=== PATIENT | female | born 1985 | race African-American/Black ===

== ENCOUNTER 2016-06-22 11:29 | Emergency (ER) | payer OTHER ==
[~2016-06-22] VITALS: Wt 89.4 kg
[~2016-06-22 11:29] MED LIST: AMOXICILLIN500 MG PO; ANAPROX DS550 MG PO; ATORVASTATIN CA10 M1 PO; AUGMENTIN 875875 MG PO; BACTRIM DS 8001 TA1 PO; CELEXA10 MG PO; CIPRO250 MG PO; CIPROFLOXACIN500 MG PO; CYCLOBENZAPRINE5 M3 PO; FIORICET 325 MG1 TAB PO; HYDROCODONE BIT1 T11 PO; IBUPROFEN600 MG PO; IMITREX ST6 MG/0.51 IM; LOMOTIL 0.025 M1 TA1 PO; MACROBID100 M1 PO; MEDROL DOSEPAK4 MG PO; MOTRIN800 MG PO; Motrin,Rufen800 MG PO; NEURONTIN300 MG PO; NKHM; PENICILLIN VK500 MG PO; PERCOCET 325 MG1 TA2 PO; PERCOCET 325 MG1 TA7 PO; PNV PRENATAL P1 EACH PO; PRENATAL1 TA2 PO; PRENATAL1 TAB PO; REGLAN10 MG PO; TORADOL10 MG PO; VENTOLIN H0.09 MG/AC INH; VICOPROFEN 2001 EACH PO; VITAMIN D50000 I3 PO; Vicodin 5/500 505 MG PO; ZITHROMAX250 MG PO; ZOFRAN ODT4 MG SL; ZOFRAN4 MG PO
[2016-06-22] MEDS ORDERED: ADDERALL XR20 MG PO (11:32)
[2016-06-22] MEDS ORDERED: NORCO 5-325 TA1 EACH PO (13:49)
== END 2016-06-22 13:58 | disposition home or self-care (01) ==
LOC: ED 11:29
DX: S92.901A Unspecified fracture of right foot, initial encounter for closed fracture (principal); F17.200 Nicotine dependence, unspecified, uncomplicated; W50.0XXA Accidental hit or strike by another person, initial encounter; Y93.89 Activity, other specified; Y92.89 Other specified places as the place of occurrence of the external cause; Y99.0 Civilian activity done for income or pay

== ENCOUNTER → 2016-07-19 | Outpatient (CLI) | payer OTHER ==
[~2016-07-19] MED LIST changes: +ADDERALL XR20 MG PO; +NORCO 5-325 TA1 EACH PO
== END | disposition home or self-care (01) ==
LOC: ORTHO 01:05
DX: S92.334D Nondisplaced fracture of third metatarsal bone, right foot, subsequent encounter for fracture with routine healing (principal); X58.XXXD Exposure to other specified factors, subsequent encounter

== ENCOUNTER 2016-07-29 07:51 | Emergency (ER) | payer OTHER ==
[~2016-07-29] VITALS: Ht 160 cm; Wt 86.2 kg
[2016-07-29] MEDS ORDERED: AMOXICILLIN500 M2 PO (10:21)
== END 2016-07-29 10:38 | disposition home or self-care (01) ==
LOC: ED 07:51
DX: J02.9 Acute pharyngitis, unspecified (principal); F17.200 Nicotine dependence, unspecified, uncomplicated; G43.909 Migraine, unspecified, not intractable, without status migrainosus; Z79.899 Other long term (current) drug therapy

== ENCOUNTER 2016-08-26 09:01 | Emergency (ER) | payer OTHER ==
[~2016-08-26] VITALS: Wt 84.8 kg
[~2016-08-26 09:01] MED LIST changes: +AMOXICILLIN500 M2 PO
[2016-08-26] MEDS ORDERED: CIPRO500 MG PO (09:21)
[2016-08-26] MEDS ORDERED: FLOXIN10 ML OT (09:22)
[2016-08-26] MEDS ORDERED: Motrin,Rufen800 MG PO (09:30)
[2016-08-27] MEDS ORDERED: PERCOCET 325 MG1 TA2 PO (03:59)
== END 2016-08-26 10:20 | disposition home or self-care (01) ==
LOC: ED 09:01
DX: H60.502 Unspecified acute noninfective otitis externa, left ear (principal); F17.200 Nicotine dependence, unspecified, uncomplicated; G43.909 Migraine, unspecified, not intractable, without status migrainosus; Z98.890 Other specified postprocedural states; Z90.710 Acquired absence of both cervix and uterus; Z79.899 Other long term (current) drug therapy

== ENCOUNTER 2016-08-27 03:45 | Emergency (ER) | payer OTHER ==
[~2016-08-27] VITALS: Ht 167.6 cm; Wt 104.3 kg
[~2016-08-27 03:45] MED LIST changes: +CIPRO500 MG PO; +FLOXIN10 ML OT
[2016-08-27] MEDS ORDERED: PERCOCET 325 MG1 TA2 PO (03:59)
== END 2016-08-27 04:17 | disposition home or self-care (01) ==
LOC: ED 03:45
DX: H60.92 Unspecified otitis externa, left ear (principal); Z79.899 Other long term (current) drug therapy

== ENCOUNTER 2016-09-25 02:53 | Emergency (ER) | payer OTHER ==
[~2016-09-25] VITALS: Ht 160 cm; Wt 5.2 kg
[2016-09-25 03:21] LABS: BILIRUBIN NEGATIVE (NEGATIVE); BLOOD NEGATIVE (NEGATIVE); CLARITY SL CLOUDY (CLEAR); COLOR YELLOW (YELLOW); GLUCOSE NEGATIVE (NEGATIVE); KETONE NEGATIVE (NEGATIVE); LEUKO ESTERASE NEGATIVE (NEGATIVE); NITRITE NEGATIVE (NEGATIVE); PROTEIN NEGATIVE (NEGATIVE); SPECIFIC GRAVITY 1.015 (1.005-1.030); UROBILINOGEN 0.2 E.U./dl (0.2-1.0)
[2016-09-25 03:27] LABS: BACTERIA 2+; URINE REFLEX COMMENT YES (NO)
[2016-09-25 04:36] LABS: BASO # 0.1 10*3/uL (0.0-0.1); BASO % 0.5 % (0.0-1.0); EOS # 0.2 10*3/uL (0.0-0.4); EOS % 1.4 % (1.0-4.0); HEMATOCRIT 41.8 % (37.0-47.0); LYMPH # 2.3 10*3/uL (1.3-4.4); LYMPH % 19.4 % (27.0-41.0); MEAN CELL VOLUME 85.8 fl (81.0-99.0); MEAN CORPUSCULAR HGB 28.7 pg (27.0-31.0); MEAN CORPUSCULAR HGB CONC 33.5 g/dl (33.0-37.0); MEAN PLATELET VOLUME 10.1 fl (9.6-12.3); MONO # 0.7 10*3/uL (0.1-1.0); MONO % 5.7 % (3.0-9.0); NEUT # 8.4 10*3/uL (2.3-7.9); NEUT % 72.7 % (47.0-73.0); PLATELET COUNT AUTOMATED 199 10*3/uL (130-400); RED BLOOD COUNT 4.87 10*6/uL (4.10-5.10); RED CELL DISTRI WIDTH 12.9 % (0-14.5); WHITE BLOOD COUNT 11.6 10*3/uL (4.8-10.8)
[2016-09-25 04:51] LABS: BUN 7 mg/dl (7-24); C-REACTIVE PROTEIN 0.36 MG/DL (0-0.3); CARBON DIOXIDE 29 mmol/L (21-32); CHLORIDE 107 mmol/L (98-107); EST GLOM FILT AFRICAN AMERICAN > 60 ml/min; GLUCOSE 128 mg/dL (65-99); POTASSIUM 4.3 mmol/L (3.5-5.1); SODIUM 142 mmol/L (136-145)
[2016-09-25] MEDS ORDERED: Orphenadrine C100 MG PO (05:33)
[2016-09-25] MEDS ORDERED: Motrin,Rufen800 MG PO (05:33)
[2016-09-25] MEDS ORDERED: ZOFRAN ODT4 MG SL (05:33)
[2016-09-25] MEDS ORDERED: ULTRAM50 MG PO (05:33)
[2016-09-25] MEDS ORDERED: MACROBID100 M1 PO (05:36)
== END 2016-09-25 06:03 | disposition home or self-care (01) ==
LOC: ED 02:53
PROVIDERS: Emergency Medicine Emergency Medical Services
DX: S39.012A Strain of muscle, fascia and tendon of lower back, initial encounter (principal); A08.4 Viral intestinal infection, unspecified; N39.0 Urinary tract infection, site not specified; R31.9 Hematuria, unspecified; G43.909 Migraine, unspecified, not intractable, without status migrainosus; F17.200 Nicotine dependence, unspecified, uncomplicated; Z79.899 Other long term (current) drug therapy; X58.XXXA Exposure to other specified factors, initial encounter; Y93.9 Activity, unspecified; Y92.9 Unspecified place or not applicable; Y99.9 Unspecified external cause status

== ENCOUNTER 2016-11-11 02:56 | Emergency (ER) | payer OTHER ==
[~2016-11-11] VITALS: Ht 160 cm; Wt 86.2 kg
[~2016-11-11 02:56] MED LIST changes: +Orphenadrine C100 MG PO; +ULTRAM50 MG PO
[2016-11-11] MEDS ORDERED: CYCLOBENZAPRINE10 MG PO (03:13)
[2016-11-11] MEDS ORDERED: NAPROSYN500 MG PO (03:13)
== END 2016-11-11 04:05 | disposition home or self-care (01) ==
LOC: ED 02:56
DX: G89.29 Other chronic pain (principal); M54.9 Dorsalgia, unspecified; Z79.899 Other long term (current) drug therapy

== ENCOUNTER 2016-12-06 01:08 | Emergency (ER) | payer OTHER ==
[~2016-12-06] VITALS: Ht 160 cm; Wt 86.2 kg
[~2016-12-06 01:08] MED LIST changes: +CYCLOBENZAPRINE10 MG PO; +NAPROSYN500 MG PO
[2016-12-06] MEDS ORDERED: ULTRAM50 MG PO (02:12)
[2016-12-06] MEDS ORDERED: Motrin,Rufen800 MG PO (02:12)
[2016-12-06] MEDS ORDERED: Orphenadrine C100 MG PO (02:12)
== END 2016-12-06 02:38 | disposition home or self-care (01) ==
LOC: ED 01:08
DX: S29.012A Strain of muscle and tendon of back wall of thorax, initial encounter (principal); Q85.00 Neurofibromatosis, unspecified; F17.200 Nicotine dependence, unspecified, uncomplicated; G43.909 Migraine, unspecified, not intractable, without status migrainosus; G89.29 Other chronic pain; Z98.890 Other specified postprocedural states; Z90.710 Acquired absence of both cervix and uterus; Z79.899 Other long term (current) drug therapy; X58.XXXA Exposure to other specified factors, initial encounter; Y93.89 Activity, other specified; Y92.89 Other specified places as the place of occurrence of the external cause; Y99.9 Unspecified external cause status

== ENCOUNTER 2017-01-09 17:39 | Emergency (ER) | payer OTHER ==
[~2017-01-09] VITALS: Ht 160 cm; Wt 88.5 kg
[2017-01-09] MEDS ORDERED: NAPROSYN500 MG PO (18:50)
[2017-01-09] MEDS ORDERED: CYCLOBENZAPRINE10 MG PO (18:50)
== END 2017-01-09 18:58 | disposition home or self-care (01) ==
LOC: ED 17:39
DX: S29.012A Strain of muscle and tendon of back wall of thorax, initial encounter (principal); Q85.00 Neurofibromatosis, unspecified; M54.89 Other dorsalgia; Z79.899 Other long term (current) drug therapy; F17.200 Nicotine dependence, unspecified, uncomplicated; F10.10 Alcohol abuse, uncomplicated; X58.XXXA Exposure to other specified factors, initial encounter; Y93.89 Activity, other specified; Y92.89 Other specified places as the place of occurrence of the external cause; Y99.8 Other external cause status

== ENCOUNTER → 2017-01-10 | Outpatient (CLI) | payer OTHER | END | disposition home or self-care (01) | LOC: MAMMO 09:23 | DX: N64.52 Nipple discharge (principal); Z80.3 Family history of malignant neoplasm of breast ==

== ENCOUNTER 2017-02-07 07:37 | Emergency (ER) | payer OTHER ==
[~2017-02-07] VITALS: Ht 160 cm; Wt 88.5 kg
== END 2017-02-07 09:23 | disposition home or self-care (01) ==
LOC: ED 07:37
DX: S63.697A Other sprain of left little finger, initial encounter (principal); G89.29 Other chronic pain; G43.909 Migraine, unspecified, not intractable, without status migrainosus; F17.200 Nicotine dependence, unspecified, uncomplicated; F10.10 Alcohol abuse, uncomplicated; Z79.899 Other long term (current) drug therapy; X58.XXXA Exposure to other specified factors, initial encounter; Y93.89 Activity, other specified; Y92.89 Other specified places as the place of occurrence of the external cause; Y99.0 Civilian activity done for income or pay

== ENCOUNTER 2017-03-30 21:36 | Emergency (ER) | payer OTHER ==
[~2017-03-30] VITALS: Ht 160 cm; Wt 88.5 kg
[2017-03-30] MEDS ORDERED: CYCLOBENZAPRINE10 MG PO (22:35)
[2017-03-30] MEDS ORDERED: NAPROSYN500 MG PO (22:35)
== END 2017-03-30 22:45 | disposition home or self-care (01) ==
LOC: ED 21:36
DX: M62.830 Muscle spasm of back (principal); F17.200 Nicotine dependence, unspecified, uncomplicated

== ENCOUNTER 2017-04-07 12:59 | Emergency (ER) | payer OTHER ==
[~2017-04-07] VITALS: Wt 90.3 kg
[2017-04-07] MEDS ORDERED: NAPROSYN500 MG PO (13:59)
== END 2017-04-07 15:14 | disposition home or self-care (01) ==
LOC: ED 12:59
DX: S90.31XA Contusion of right foot, initial encounter (principal); R03.0 Elevated blood-pressure reading, without diagnosis of hypertension; F17.200 Nicotine dependence, unspecified, uncomplicated; G43.909 Migraine, unspecified, not intractable, without status migrainosus; G89.29 Other chronic pain; Z98.890 Other specified postprocedural states; Z79.899 Other long term (current) drug therapy; W20.8XXA Other cause of strike by thrown, projected or falling object, initial encounter; Y93.89 Activity, other specified; Y92.89 Other specified places as the place of occurrence of the external cause; Y99.9 Unspecified external cause status

== ENCOUNTER → 2017-04-13 | Outpatient (CLI) | payer OTHER ==
[~2017-04-13] MED LIST changes: +PRE NATAL VITAMIN PO; +VITAMIN D5000 UNI1 PO
[2017-04-13 09:41] LABS: BASO % 0.5 % (0.0-1.0); EOS # 0.2 10*3/uL (0.0-0.4); EOS % 2.6 % (1.0-4.0); HEMOGLOBIN 14.7 g/dl (12.0-16.0); LYMPH # 2.7 10*3/uL (1.3-4.4); LYMPH % 36.8 % (27.0-41.0); MEAN CELL VOLUME 84.1 fl (81.0-99.0); MEAN CORPUSCULAR HGB 28.8 pg (27.0-31.0); MEAN CORPUSCULAR HGB CONC 34.2 g/dl (33.0-37.0); MEAN PLATELET VOLUME 10.3 fl (9.6-12.3); MONO # 0.5 10*3/uL (0.1-1.0); MONO % 6.8 % (3.0-9.0); NEUT # 3.9 10*3/uL (2.3-7.9); NEUT % 53.2 % (47.0-73.0); PLATELET COUNT AUTOMATED 263 10*3/uL (130-400); RED BLOOD COUNT 5.11 10*6/uL (4.10-5.10); RED CELL DISTRI WIDTH 12.7 % (0-14.5); WHITE BLOOD COUNT 7.3 10*3/uL (4.8-10.8)
[2017-04-13 09:43] LABS: BILIRUBIN NEGATIVE (NEGATIVE); BLOOD NEGATIVE (NEGATIVE); CLARITY CLEAR (CLEAR); COLOR YELLOW (YELLOW); GLUCOSE NEGATIVE (NEGATIVE); KETONE NEGATIVE (NEGATIVE); LEUKO ESTERASE NEGATIVE (NEGATIVE); NITRITE NEGATIVE (NEGATIVE); PH 5.5 (5.0-9.0); SPECIFIC GRAVITY 1.025 (1.005-1.030); UROBILINOGEN 0.2 E.U./dl (0.2-1.0)
[2017-04-13 10:09] LABS: BUN 8 mg/dl (7-24); CHLORIDE 105 mmol/L (98-107); CREATININE 0.64 mg/dL (0.55-1.02); SODIUM 141 mmol/L (136-145)
[2017-04-13 10:33] LABS: ACT PARTIAL THROMBO TIME 22.8 SECONDS (20.8-31.5); BACTERIA TRACE
== END | disposition home or self-care (01) ==
LOC: LAB 08:15
PROVIDERS: Surgery
DX: N63.0 Unspecified lump in unspecified breast (principal)

== ENCOUNTER → 2017-04-19 | Day surgery (SDC) | payer OTHER ==
[~2017-04-19] VITALS: Ht 160 cm; Wt 93.4 kg
--- NOTE | ~2017-04-19 | PROC NOTE ---
[place], [place] PROCEDURE NOTE NAME: RADHA LEBLANC UNIT #: [id number] ROOM: DOCTOR: ORVILLE AYALA MD BIRTHDATE: [birth year] DOS: 04/19/2017 PREOPERATIVE DIAGNOSIS: Left breast mass. POSTOPERATIVE DIAGNOSIS: Left breast mass. PROCEDURE: Excision biopsy of the left breast. SURGEON: Orville Ayala MD [employer] INSPECTOR: MARK. ANESTHESIA: MAC with local (10 mL of 1% plain lidocaine). INDICATIONS: This is a 32-year-old -[place] lady who was recently diagnosed with a possibility of having an intraductal papilloma in the left breast, which was causing her to have bloody left nipple discharge. She is here today because she would like to have an excision of this mass. The procedure and its complications were explained to the patient in detail preoperatively. Complications that were discussed included but were not limited to bleeding, infection, hematoma/seroma/abscess formation and prolonged pain. She agreed to proceed. DESCRIPTION OF PROCEDURE: After identifying the patient, the patient was brought to the operating suite and laid in the supine position. After IV sedation was administered, the parts were painted and draped in the usual sterile fashion. A time-out procedure was called. An incision was made after it was marked in the subareolar fashion. The skin and the subcutaneous tissue were incised. The nipple was raised by creating a flap under the nipple in the superior fashion. The subareolar tissue was then grasped and excised in a spherical fashion with the help of electrocautery and sent for histopathological diagnosis. Prior to sending it for histopathology, it was appropriately oriented by taking a short suture superiorly and a long suture laterally. Hemostasis was achieved and saline was used for irrigation. Thereafter, the subcutaneous tissue was approximated with the help of 3-0 Vicryl in a running fashion and the skin edges were then approximated with the help of 4-0 Vicryl in a subcuticular running fashion. Dressing was placed. The patient tolerated the procedure well and was taken to the recovery room in a stable fashion. There were no complications. Dr. Orville Ayala, the attending surgeon, was present throughout the operating case. [place], [place] PROCEDURE NOTE NAME: RADHA LEBLANC UNIT #: [id number] ROOM: DOCTOR: ORVILLE AYALA MD BIRTHDATE: [birth year] Orville Ayala MD CM:PROCNOTE:PROCEDURE NOTE [phone] ORVILLE AYALA MD
[2017-04-19 07:25] VITALS: BP 124/71
[2017-04-19 08:25] VITALS: BP 107/64
[2017-04-19 08:38] VITALS: BP 121/78
[2017-04-19 08:53] VITALS: BP 92/55
== END | disposition home or self-care (01) ==
LOC: SDC 04-13 08:45
DX: N60.12 Diffuse cystic mastopathy of left breast (principal); K21.9 Gastro-esophageal reflux disease without esophagitis; F32.9 Major depressive disorder, single episode, unspecified; F17.210 Nicotine dependence, cigarettes, uncomplicated; E78.5 Hyperlipidemia, unspecified; Z90.710 Acquired absence of both cervix and uterus; Z98.890 Other specified postprocedural states; Z79.899 Other long term (current) drug therapy; Z88.8 Allergy status to other drugs, medicaments and biological substances; Z85.43 Personal history of malignant neoplasm of ovary

== ENCOUNTER 2017-05-19 09:57 | Emergency (ER) | payer OTHER ==
[~2017-05-19] VITALS: Ht 160 cm; Wt 97.5 kg
[2017-05-19 10:28] LABS: BASO # 0.1 10*3/uL (0.0-0.1); BASO % 0.7 % (0.0-1.0); EOS # 0.2 10*3/uL (0.0-0.4); EOS % 2.5 % (1.0-4.0); HEMATOCRIT 43.9 % (37.0-47.0); LYMPH # 3.3 10*3/uL (1.3-4.4); MEAN CELL VOLUME 84.9 fl (81.0-99.0); MEAN CORPUSCULAR HGB CONC 34.2 g/dl (33.0-37.0); MEAN PLATELET VOLUME 10.3 fl (9.6-12.3); MONO # 0.7 10*3/uL (0.1-1.0); MONO % 7.6 % (3.0-9.0); NEUT # 4.7 10*3/uL (2.3-7.9); NEUT % 52.1 % (47.0-73.0); PLATELET COUNT AUTOMATED 271 10*3/uL (130-400); RED BLOOD COUNT 5.17 10*6/uL (4.10-5.10)
[2017-05-19 10:41] LABS: BUN 15 mg/dl (7-24); CHLORIDE 108 mmol/L (98-107); CREATININE 0.74 mg/dL (0.55-1.02); POTASSIUM 4.3 mmol/L (3.5-5.1); SODIUM 140 mmol/L (136-145)
[2017-05-19] MEDS ORDERED: CYCLOBENZAPRINE10 MG PO (12:28)
== END 2017-05-19 12:29 | disposition home or self-care (01) ==
LOC: ED 09:57
PROVIDERS: Emergency Medicine
DX: M54.6 Pain in thoracic spine (principal); G89.29 Other chronic pain; Q85.00 Neurofibromatosis, unspecified; G43.909 Migraine, unspecified, not intractable, without status migrainosus; Z98.890 Other specified postprocedural states; Z90.710 Acquired absence of both cervix and uterus; Z79.899 Other long term (current) drug therapy; Z88.6 Allergy status to analgesic agent

== ENCOUNTER 2017-05-23 02:59 | Emergency (ER) | payer OTHER ==
[~2017-05-23] VITALS: Ht 165.1 cm; Wt 95.3 kg
== END 2017-05-23 03:32 | disposition home or self-care (01) ==
LOC: ED 02:59
DX: M54.6 Pain in thoracic spine (principal); G43.909 Migraine, unspecified, not intractable, without status migrainosus; G89.29 Other chronic pain; Z98.890 Other specified postprocedural states; Z90.710 Acquired absence of both cervix and uterus; Z79.899 Other long term (current) drug therapy; Z88.6 Allergy status to analgesic agent

== ENCOUNTER 2017-06-24 21:39 | Emergency (ER) | payer OTHER ==
[~2017-06-24] VITALS: Ht 160 cm; Wt 97.5 kg
[2017-06-24 22:56] LABS: BASO # 0.1 10*3/uL (0.0-0.1); BASO % 0.6 % (0.0-1.0); EOS # 0.3 10*3/uL (0.0-0.4); EOS % 3.1 % (1.0-4.0); HEMATOCRIT 41.3 % (37.0-47.0); HEMOGLOBIN 14.2 g/dl (12.0-16.0); LYMPH # 4.1 10*3/uL (1.3-4.4); LYMPH % 43.2 % (27.0-41.0); MEAN CELL VOLUME 84.6 fl (81.0-99.0); MEAN CORPUSCULAR HGB 29.1 pg (27.0-31.0); MEAN CORPUSCULAR HGB CONC 34.4 g/dl (33.0-37.0); MEAN PLATELET VOLUME 10.2 fl (9.6-12.3); MONO # 0.9 10*3/uL (0.1-1.0); MONO % 9.2 % (3.0-9.0); NEUT # 4.1 10*3/uL (2.3-7.9); NEUT % 43.7 % (47.0-73.0); PLATELET COUNT AUTOMATED 253 10*3/uL (130-400); RED BLOOD COUNT 4.88 10*6/uL (4.10-5.10); RED CELL DISTRI WIDTH 12.8 % (0-14.5); WHITE BLOOD COUNT 9.4 10*3/uL (4.8-10.8)
[2017-06-24 23:07] LABS: ACT PARTIAL THROMBO TIME 22.7 SECONDS (20.8-31.5); INTERNATIONAL NORM RATIO 0.9 (2.0-3.5)
[2017-06-24 23:12] LABS: ALBUMIN 3.7 gm/dl (3.1-4.5); ALKALINE PHOSPHATASE 119 U/L (45-117); BUN 8 mg/dl (7-24); CHLORIDE 108 mmol/L (98-107); CREATININE 0.65 mg/dL (0.55-1.02); POTASSIUM 3.5 mmol/L (3.5-5.1); SGOT/AST 15 IU/L (3-35); SGPT/ALT 31 U/L (12-78); SODIUM 143 mmol/L (136-145); TOTAL PROTEIN 6.9 gm/dL (6.4-8.2)
[2017-06-24 23:13] LABS: TROPONIN I < 0.015 ng/ml (<0.045)
== END 2017-06-25 01:03 | disposition home or self-care (01) ==
LOC: ED 21:39
PROVIDERS: Physician Assistant
DX: R07.89 Other chest pain (principal); G89.29 Other chronic pain; M54.6 Pain in thoracic spine; F17.200 Nicotine dependence, unspecified, uncomplicated; Z98.890 Other specified postprocedural states; Z90.710 Acquired absence of both cervix and uterus; Z79.899 Other long term (current) drug therapy; Z88.6 Allergy status to analgesic agent

== ENCOUNTER 2017-07-13 09:47 | Emergency (ER) | payer OTHER ==
[~2017-07-13] VITALS: Ht 160 cm; Wt 97.5 kg
[2017-07-13] MEDS ORDERED: CHLORZOXAZONE500 M2 PO (11:02)
[2017-07-13] MEDS ORDERED: ZOFRAN4 MG PO (11:02)
== END 2017-07-13 11:02 | disposition home or self-care (01) ==
LOC: ED 09:47
DX: G89.29 Other chronic pain (principal); R03.0 Elevated blood-pressure reading, without diagnosis of hypertension; G43.909 Migraine, unspecified, not intractable, without status migrainosus; M62.830 Muscle spasm of back; Z98.890 Other specified postprocedural states; Z90.710 Acquired absence of both cervix and uterus; Z88.6 Allergy status to analgesic agent; Z79.899 Other long term (current) drug therapy

== ENCOUNTER 2017-07-23 00:46 | Emergency (ER) | payer OTHER ==
[~2017-07-23] VITALS: Ht 160 cm; Wt 98.0 kg
[~2017-07-23 00:46] MED LIST changes: +CHLORZOXAZONE500 M2 PO
== END 2017-07-23 03:59 | disposition home or self-care (01) ==
LOC: ED 00:46
DX: M54.6 Pain in thoracic spine (principal); Z98.890 Other specified postprocedural states; Z90.710 Acquired absence of both cervix and uterus; Z79.899 Other long term (current) drug therapy; Z88.6 Allergy status to analgesic agent; X50.1XXA Overexertion from prolonged static or awkward postures, initial encounter; Y93.89 Activity, other specified; Y92.69 Other specified industrial and construction area as the place of occurrence of the external cause; Y99.9 Unspecified external cause status

== ENCOUNTER 2017-08-31 04:37 | Emergency (ER) | payer OTHER ==
[~2017-08-31] VITALS: Ht 162.5 cm; Wt 95.3 kg
[2017-08-31 05:11] LABS: BASO # 0.1 10*3/uL (0.0-0.1); BASO % 0.7 % (0.0-1.0); EOS # 0.2 10*3/uL (0.0-0.4); EOS % 3.4 % (1.0-4.0); HEMATOCRIT 41.4 % (37.0-47.0); HEMOGLOBIN 13.9 g/dl (12.0-16.0); LYMPH # 3.4 10*3/uL (1.3-4.4); LYMPH % 48.5 % (27.0-41.0); MEAN CORPUSCULAR HGB 29.2 pg (27.0-31.0); MEAN CORPUSCULAR HGB CONC 33.6 g/dl (33.0-37.0); MEAN PLATELET VOLUME 10.3 fl (9.6-12.3); MONO # 0.6 10*3/uL (0.1-1.0); MONO % 8.5 % (3.0-9.0); NEUT # 2.7 10*3/uL (2.3-7.9); NEUT % 38.8 % (47.0-73.0); PLATELET COUNT AUTOMATED 238 10*3/uL (130-400); RED BLOOD COUNT 4.76 10*6/uL (4.10-5.10); RED CELL DISTRI WIDTH 12.6 % (0-14.5); WHITE BLOOD COUNT 7.1 10*3/uL (4.8-10.8)
[2017-08-31 05:34] LABS: ALBUMIN 3.5 gm/dl (3.1-4.5); ALKALINE PHOSPHATASE 132 U/L (45-117); BUN 11 mg/dl (7-24); CHLORIDE 106 mmol/L (98-107); CREATININE 0.72 mg/dL (0.55-1.02); SGOT/AST 20 IU/L (3-35); SGPT/ALT 46 U/L (12-78); SODIUM 141 mmol/L (136-145)
[2017-08-31 05:39] LABS: TROPONIN I < 0.015 ng/ml (<0.045)
[2017-08-31] MEDS ORDERED: LEVOFLOXACIN500 MG PO (08:11)
[2017-08-31] MEDS ORDERED: Motrin,Rufen800 MG PO (08:11)
== END 2017-08-31 08:20 | disposition home or self-care (01) ==
LOC: ED 04:37
PROVIDERS: Emergency Medicine
DX: J18.1 Lobar pneumonia, unspecified organism (principal); M79.1 Myalgia; G89.29 Other chronic pain; G43.909 Migraine, unspecified, not intractable, without status migrainosus; Z98.890 Other specified postprocedural states; Z90.710 Acquired absence of both cervix and uterus; Z79.899 Other long term (current) drug therapy; Z88.6 Allergy status to analgesic agent

== ENCOUNTER 2017-09-26 13:22 | Inpatient (IN) | payer MEDICAID ==
[~2017-09-26] VITALS: Ht 154.9 cm; Wt 94.3 kg
--- NOTE | ~2017-09-26 | O ---
[place], [place] OPERATIVE NOTE [facility]: [id number] UNIT #: [id number] ROOM: 425 DOCTOR: JOSIAH ROCK MD BIRTHDATE: [birth year] DOS: 10/01/2017 GASTROENDOSCOPIC REPORT HISTORY OF PRESENT ILLNESS: This is a 32-year-old who has presented with chief complaint of abdominal cramp and diarrhea and CT scan suggestion of colitis. PROCEDURE: Today's procedure part of investigation is colonoscopy plus polypectomy plus random biopsy of colon. PREMEDICATION: Propofol. SCOPE: Olympus forward-viewing colonoscope 10L video. REPORT: After putting the patient in left lateral position and application of lubricant to the rectal pouch and digital examination, the scope was introduced. Thereafter, under direct visualization, advanced through the length of colon without difficulty. Sessile polypoid lesion from the cecum was removed. Another polypoid lesion from sigmoid colon with a snare was removed. Random biopsies of the colon were obtained. Air was suctioned out through a very tortuous colon. The patient extubated and tolerated procedure well. IMPRESSION: Tortuous colon, sessile polypoid lesion in sigmoid colon, status post snare polypectomy; cecal sessile polyp, status post piecemeal polypectomy; status post biopsy random from transverse colon, ruling out collagenous colitis. PLAN AND DISCUSSION: The patient is ready to be fed. JOSIAH ROCK MD CM:OPRECORD:OPERATIVE NOTE [phone] JOSIAH ROCK MD 10/01/17 175 interface
--- NOTE | ~2017-09-26 | CON ---
[place], [place] REPORT OF CONSULTATION [id number] UNIT #: [id number] ROOM: 425 DOCTOR: PRANAV COEJOSIAH BIRTHDATE: [birth year] DOS: 09/28/2017 HISTORY OF PRESENT ILLNESS: The patient has presented with chief complaint of nausea, vomiting and diarrhea for 3 days and studies were completed on her. C. diff was negative on parasite, cryptosporidium and Giardia negative. The patient presented with white blood cell of 15, H and H of 16 and 49. Electrolyte balance, liver function test nearly normal. Lipase normal. A urinalysis 2+ bacteria. CT scan of the abdomen and pelvis, there was hepatic steatosis, mild colitis and cholelithiasis. CBC differential reassessed, normalized. His white blood cell was 7, H and H of 14 and 42. INR was 1.0, hemoglobin A1c 6.0 and folate and B12 was normal. Vitamin D was 25, low. Urine culture unremarkable. CBC unremarkable. PAST MEDICAL HISTORY: Nausea, vomiting, diarrhea, migraine, cephalalgia otherwise, back pain, neurofibromatosis, history of STD exposure. PAST SURGICAL HISTORY: Hysterectomy, hernia repair, breast biopsy, hysterectomy, tooth extraction. SOCIAL HISTORY: Social alcohol use, tobacco use. FAMILY HISTORY: Noncontributory. Diabetes mellitus. ALLERGIES: NAPROXEN. MEDICATIONS: At home, vitamin D, cholesterol medication, atorvastatin 10 mg daily, citalopram, ibuprofen 800 mg t.i.d., levofloxacin. REVIEW OF SYSTEMS: HEENT: Denies double vision, blurred vision. RESPIRATORY: Denies shortness of breath. CARDIOVASCULAR: Denies chest pain. DIGESTIVE SYSTEM: Nausea, vomiting, and diarrhea for 3 days. PHYSICAL EXAMINATION: VITAL SIGNS: Stable. HEENT: Head normocephalic, nontraumatic. Mouth and buccal mucosa benign. NECK: Supple, no thyromegaly, no cervical lymphadenopathy. CHEST: Symmetric anatomy, equal expansion. No wheeze, no rhonchi. HEART: Normal sinus rhythm, no gallop, no murmur. ABDOMEN: Soft. No hepato-organomegaly. Bowel sounds present. EXTREMITIES: No cyanosis, no pedal edema. NEUROLOGIC: Alert, oriented to time, place, person. IMPRESSION: Nausea, vomiting, diarrhea for 3 days, ruling out gastroenteritis with presentation of mild colitis, hepatic steatosis, cholelithiasis without adverse effects on liver function test, hypertriglyceridemia. Migraine cephalalgia. PLAN AND DISCUSSION: We are going to organize endoscopy of upper tract to rule [place], [place] REPORT OF CONSULTATION NAME: RADHA LEBLANC UNIT #: [id number] ROOM: 425 DOCTOR: PRANAV COE,JOSIAH BIRTHDATE: [birth year] out etiology of nausea, vomiting and epigastric pain. EGD today. JOSIAH ROCK MD CM:CONSTR:REPORT OF CONSULTATION 1405 10/17/17 0711 interface
--- NOTE | ~2017-09-26 | PR ---
[place], [place] PROGRESS NOTE NAME: RADHA LEBLANC [facility] #: [id number] UNIT #: [id number] ROOM: 425 DOCTOR: MARIMAR CARL MD BIRTHDATE: [birth year] DOS: SUBJECTIVE: The patient has been admitted to hospital with pain in the abdomen with colitis. She is a known case of colitis. She has also neurofibromatosis and gynecologic cancer. The patient is feeling better. Her diarrhea is much improved and there is no vomiting, no fever or chills. No chest pain. No difficulty in breathing. The patient is tolerating food quite satisfactorily. Her CBC today is essentially normal. OBJECTIVE: VITAL SIGNS: Her blood pressure 109/57, pulse 56, respirations 20, and temperature 97.9. CHEST: Clear. HEART: Regular. ABDOMEN: Showing some tenderness in the left lower quadrant and suprapubic region. The patient is responding to treatment well. MARMIAR CARL MD CM:PNTRANS [phone] MARIMAR CARL MD 10/01/17 0117 interface
--- NOTE | ~2017-09-26 | O ---
[place], [place] OPERATIVE NOTE [facility]: [id number] UNIT #: [id number] ROOM: 425 DOCTOR: PRANAV COE,JOSIAH BIRTHDATE: [birth year] DOS: 09/28/2017 PANENDOSCOPY PLUS BIOPSY. PREMEDICATION: Propofol. SCOPE: Olympus folding gastroscope Q10 video. REPORT: After putting the patient in left lateral position and application of lubricant to the scope, the scope was introduced. Thereafter, under direct visualization, advanced through the length of esophagus without difficulty. Esophagus, cervical, thoracic distal within normal limits. Gastric pouch was entered after passing through a small hiatal hernia and no acute pathology otherwise except distal esophagitis noticed. Duodenal bulb, second and third part within normal limit. Gastritis was biopsied. The patient extubated, tolerated the procedure well. IMPRESSION: Distal esophagitis and small hiatal hernia, gastritis. PLAN AND DISCUSSION: We are going to proceed with Protonix 40 mg daily, and as far as antibiotics is concerned, he can be on Flagyl 500 mg p.o. x 1 week and colonoscopy as outpatient if she remains in the hospital. We are going to then proceed with colonoscopy on Sunday. JOSIAH ROCK MD CM:OPRECORD:OPERATIVE NOTE [phone] JOSIAH ROCK MD 09/29/17 0459 interface
--- NOTE | ~2017-09-26 | PR ---
[place], [place] PROGRESS NOTE NAME: RADHA LEBLANC [facility] #: [id number] UNIT #: [id number] ROOM: 425 DOCTOR: MARIMAR CARL MD BIRTHDATE: [birth year] DOS: The patient has been admitted to the hospital with pain in her abdomen with nausea and vomiting. The patient is feeling better today and her abdominal pain is much less as compared to yesterday. She denies having any vomiting today and CT of the abdomen done in the ER revealed colitis. CBC revealed leukocytosis. The patient has past history of colitis, depression and GERD syndrome, hiatal hernia, tobacco abuse, vitamin B12 deficient and multiple neurofibromatosis, history of STD in the past, past history of breast biopsy, history of hernia repair, history of hysterectomy for cancer and history of removal of neurofibromatosis. She drinks occasionally and smokes 1 pack of cigarettes daily. She has some tenderness on the right upper quadrant, bowel sounds are normal. The patient is a known case of chronic cholecystitis. The patient has been seen by Dr. Mojica. He has not at present advised to have any cholecystectomy done. Basic metabolic profile today is fairly normal. CBC is showing no acute problem and stool cultures are negative for Campylobacter, E. coli, Salmonella, Shigella, Vibrio, and Yersinia. Her blood pressure is 108/61, pulse 65, respirations 18, temperature 97.7. MARIMAR CARL MD CM:PNTRANS [phone] MARIMAR CARL MD 09/30/17 0845 interface
[~2017-09-26 13:22] MED LIST changes: +LEVOFLOXACIN500 MG PO
[2017-09-26 13:25] VITALS: BP 116/83
[2017-09-26 14:12] LABS: BASO % 0.3 % (0.0-1.0); EOS # 0.2 10*3/uL (0.0-0.4); EOS % 1.2 % (1.0-4.0); HEMATOCRIT 49.2 % (37.0-47.0); HEMOGLOBIN 16.8 g/dl (12.0-16.0); LYMPH # 1.7 10*3/uL (1.3-4.4); LYMPH % 11.2 % (27.0-41.0); MEAN CELL VOLUME 84.1 fl (81.0-99.0); MEAN CORPUSCULAR HGB 28.7 pg (27.0-31.0); MEAN CORPUSCULAR HGB CONC 34.1 g/dl (33.0-37.0); MEAN PLATELET VOLUME 10.6 fl (9.6-12.3); MONO # 1.1 10*3/uL (0.1-1.0); NEUT # 12.4 10*3/uL (2.3-7.9); PLATELET COUNT AUTOMATED 275 10*3/uL (130-400); RED BLOOD COUNT 5.85 10*6/uL (4.10-5.10); RED CELL DISTRI WIDTH 12.6 % (0-14.5); WHITE BLOOD COUNT 15.5 10*3/uL (4.8-10.8)
[2017-09-26 14:26] LABS: ALBUMIN 4.3 gm/dl (3.1-4.5); ALKALINE PHOSPHATASE 127 U/L (45-117); BUN 8 mg/dl (7-24); CHLORIDE 106 mmol/L (98-107); LIPASE 86 U/L (73-393); POTASSIUM 4.4 mmol/L (3.5-5.1); SGOT/AST 13 IU/L (3-35); SGPT/ALT 36 U/L (12-78); SODIUM 138 mmol/L (136-145); TOTAL PROTEIN 8.4 gm/dL (6.4-8.2)
[2017-09-26 14:56] LABS: BILIRUBIN NEGATIVE (NEGATIVE); BLOOD NEGATIVE (NEGATIVE); CLARITY CLEAR (CLEAR); COLOR YELLOW (YELLOW); GLUCOSE NEGATIVE (NEGATIVE); KETONE NEGATIVE (NEGATIVE); LEUKO ESTERASE NEGATIVE (NEGATIVE); NITRITE NEGATIVE (NEGATIVE); UROBILINOGEN 0.2 E.U./dl (0.2-1.0)
[2017-09-26 15:17] LABS: BACTERIA 2+; WBC 0-2 wbc/hpf (0-5)
[2017-09-26 16:48] VITALS: BP 106/71
[2017-09-26 17:59] VITALS: BP 121/70
[2017-09-26 20:00] VITALS: BP 115/70
[2017-09-27] VITALS: BP 113/73
[2017-09-27 06:14] LABS: BASO % 0.6 % (0.0-1.0); EOS # 0.3 10*3/uL (0.0-0.4); EOS % 3.5 % (1.0-4.0); LYMPH # 2.8 10*3/uL (1.3-4.4); LYMPH % 38.9 % (27.0-41.0); MEAN CELL VOLUME 86.1 fl (81.0-99.0); MEAN CORPUSCULAR HGB 28.6 pg (27.0-31.0); MEAN CORPUSCULAR HGB CONC 33.2 g/dl (33.0-37.0); MEAN PLATELET VOLUME 10.7 fl (9.6-12.3); MONO # 0.7 10*3/uL (0.1-1.0); MONO % 10.2 % (3.0-9.0); NEUT # 3.4 10*3/uL (2.3-7.9); NEUT % 46.7 % (47.0-73.0); PLATELET COUNT AUTOMATED 224 10*3/uL (130-400); RED CELL DISTRI WIDTH 12.6 % (0-14.5); WHITE BLOOD COUNT 7.2 10*3/uL (4.8-10.8)
[2017-09-27 06:17] LABS: HEMATOCRIT 42.2 % (37.0-47.0)
[2017-09-27 06:38] LABS: ACT PARTIAL THROMBO TIME 22.7 SECONDS (20.8-31.5)
[2017-09-27 06:41] LABS: ALBUMIN 3.3 gm/dl (3.1-4.5); BUN 7 mg/dl (7-24); CHLORIDE 105 mmol/L (98-107); SODIUM 140 mmol/L (136-145)
[2017-09-27 06:48] LABS: ALKALINE PHOSPHATASE 99 U/L (45-117); CHOLESTEROL 203 mg/dL (<200); CREATININE 0.69 mg/dL (0.55-1.02); FREE T4 0.73 ng/dl (0.76-1.46); HDL CHOLESTEROL 36 mg/dl (40-60); LDL CHOLESTEROL 119 mg/dL (9-159); PHOSPHOROUS 3.6 mg/dL (2.5-4.9); SGOT/AST 10 IU/L (3-35); SGPT/ALT 29 U/L (12-78); TOTAL PROTEIN 6.3 gm/dL (6.4-8.2); TRIGLYCERIDES 242 mg/dl (<150); VLDL CHOLESTEROL 48 mg/dL (6-40)
[2017-09-27 07:56] LABS: VITAMIN D, 25-HYDROXY 25.3 ng/mL (30-100)
[2017-09-27 08:00] VITALS: BP 114/64
[2017-09-27 12:00] VITALS: BP 109/58
[2017-09-27 16:00] VITALS: BP 108/75
[2017-09-27 20:00] VITALS: BP 114/59
[2017-09-28] VITALS (9 sets, daily range): BP systolic 98–130; BP diastolic 35–69
[2017-09-28 07:08] LABS: BASO % 0.6 % (0.0-1.0); EOS # 0.2 10*3/uL (0.0-0.4); EOS % 4.8 % (1.0-4.0); HEMATOCRIT 37.9 % (37.0-47.0); HEMOGLOBIN 12.7 g/dl (12.0-16.0); LYMPH # 2.4 10*3/uL (1.3-4.4); LYMPH % 50.1 % (27.0-41.0); MEAN CELL VOLUME 87.3 fl (81.0-99.0); MEAN CORPUSCULAR HGB 29.3 pg (27.0-31.0); MEAN CORPUSCULAR HGB CONC 33.5 g/dl (33.0-37.0); MEAN PLATELET VOLUME 10.1 fl (9.6-12.3); MONO # 0.5 10*3/uL (0.1-1.0); MONO % 9.4 % (3.0-9.0); NEUT # 1.7 10*3/uL (2.3-7.9); NEUT % 35.1 % (47.0-73.0); PLATELET COUNT AUTOMATED 185 10*3/uL (130-400); RED BLOOD COUNT 4.34 10*6/uL (4.10-5.10); RED CELL DISTRI WIDTH 12.5 % (0-14.5); WHITE BLOOD COUNT 4.8 10*3/uL (4.8-10.8)
[2017-09-28 07:24] LABS: BUN 8 mg/dl (7-24); CHLORIDE 111 mmol/L (98-107); CREATININE 0.73 mg/dL (0.55-1.02); POTASSIUM 4.4 mmol/L (3.5-5.1); SODIUM 144 mmol/L (136-145)
[2017-09-29] VITALS: BP 106/63
[2017-09-29 06:44] LABS: BASO % 0.5 % (0.0-1.0); EOS # 0.3 10*3/uL (0.0-0.4); EOS % 4.5 % (1.0-4.0); HEMATOCRIT 39.3 % (37.0-47.0); HEMOGLOBIN 13.1 g/dl (12.0-16.0); LYMPH # 2.9 10*3/uL (1.3-4.4); LYMPH % 47.2 % (27.0-41.0); MEAN CORPUSCULAR HGB 28.7 pg (27.0-31.0); MEAN CORPUSCULAR HGB CONC 33.3 g/dl (33.0-37.0); MEAN PLATELET VOLUME 10.5 fl (9.6-12.3); MONO # 0.6 10*3/uL (0.1-1.0); MONO % 9.4 % (3.0-9.0); NEUT # 2.3 10*3/uL (2.3-7.9); NEUT % 38.2 % (47.0-73.0); PLATELET COUNT AUTOMATED 214 10*3/uL (130-400); RED BLOOD COUNT 4.57 10*6/uL (4.10-5.10); RED CELL DISTRI WIDTH 12.5 % (0-14.5)
[2017-09-29 07:20] LABS: BUN 6 mg/dl (7-24); CHLORIDE 107 mmol/L (98-107); CREATININE 0.72 mg/dL (0.55-1.02); SODIUM 141 mmol/L (136-145)
[2017-09-29 08:00] VITALS: BP 108/61
[2017-09-29 12:00] VITALS: BP 109/55
[2017-09-29 16:00] VITALS: BP 109/63
[2017-09-29 20:00] VITALS: BP 148/86
[2017-09-29 22:15] VITALS: BP 140/83
[2017-09-30] VITALS: BP 109/57
[2017-09-30 06:48] LABS: BASO % 0.5 % (0.0-1.0); EOS # 0.3 10*3/uL (0.0-0.4); EOS % 4.4 % (1.0-4.0); HEMATOCRIT 38.2 % (37.0-47.0); HEMOGLOBIN 12.9 g/dl (12.0-16.0); LYMPH # 2.7 10*3/uL (1.3-4.4); MEAN CELL VOLUME 85.1 fl (81.0-99.0); MEAN CORPUSCULAR HGB 28.7 pg (27.0-31.0); MEAN CORPUSCULAR HGB CONC 33.8 g/dl (33.0-37.0); MONO # 0.6 10*3/uL (0.1-1.0); MONO % 9.4 % (3.0-9.0); NEUT % 45.5 % (47.0-73.0); PLATELET COUNT AUTOMATED 193 10*3/uL (130-400); RED BLOOD COUNT 4.49 10*6/uL (4.10-5.10); RED CELL DISTRI WIDTH 12.1 % (0-14.5); WHITE BLOOD COUNT 6.6 10*3/uL (4.8-10.8)
[2017-09-30 07:23] LABS: BUN 7 mg/dl (7-24); CHLORIDE 109 mmol/L (98-107); CREATININE 0.68 mg/dL (0.55-1.02); POTASSIUM 3.9 mmol/L (3.5-5.1); SODIUM 144 mmol/L (136-145)
[2017-09-30 08:00] VITALS: BP 100/52
[2017-09-30 12:00] VITALS: BP 124/61
[2017-09-30 16:00] VITALS: BP 118/67
[2017-09-30 20:00] VITALS: BP 124/65
[2017-10-01] VITALS (8 sets, daily range): BP systolic 103–126; BP diastolic 56–72
[2017-10-01 06:10] LABS: BASO % 0.5 % (0.0-1.0); EOS # 0.3 10*3/uL (0.0-0.4); EOS % 3.8 % (1.0-4.0); HEMATOCRIT 38.7 % (37.0-47.0); HEMOGLOBIN 13.2 g/dl (12.0-16.0); LYMPH # 2.3 10*3/uL (1.3-4.4); LYMPH % 35.6 % (27.0-41.0); MEAN CELL VOLUME 84.9 fl (81.0-99.0); MEAN CORPUSCULAR HGB 28.9 pg (27.0-31.0); MEAN CORPUSCULAR HGB CONC 34.1 g/dl (33.0-37.0); MEAN PLATELET VOLUME 10.3 fl (9.6-12.3); MONO # 0.6 10*3/uL (0.1-1.0); MONO % 8.8 % (3.0-9.0); NEUT # 3.4 10*3/uL (2.3-7.9); NEUT % 51.1 % (47.0-73.0); PLATELET COUNT AUTOMATED 202 10*3/uL (130-400); RED BLOOD COUNT 4.56 10*6/uL (4.10-5.10); RED CELL DISTRI WIDTH 12.4 % (0-14.5); WHITE BLOOD COUNT 6.6 10*3/uL (4.8-10.8)
[2017-10-01 06:18] LABS: BUN 6 mg/dl (7-24); CHLORIDE 109 mmol/L (98-107); CREATININE 0.74 mg/dL (0.55-1.02); POTASSIUM 3.9 mmol/L (3.5-5.1); SODIUM 142 mmol/L (136-145)
[2017-10-02] VITALS: BP 116/60
[2017-10-02 05:51] LABS: BASO % 0.5 % (0.0-1.0); EOS # 0.3 10*3/uL (0.0-0.4); EOS % 4.6 % (1.0-4.0); HEMATOCRIT 38.9 % (37.0-47.0); HEMOGLOBIN 13.2 g/dl (12.0-16.0); LYMPH # 2.3 10*3/uL (1.3-4.4); LYMPH % 35.4 % (27.0-41.0); MEAN CELL VOLUME 83.8 fl (81.0-99.0); MEAN CORPUSCULAR HGB 28.4 pg (27.0-31.0); MEAN CORPUSCULAR HGB CONC 33.9 g/dl (33.0-37.0); MEAN PLATELET VOLUME 10.5 fl (9.6-12.3); MONO # 0.7 10*3/uL (0.1-1.0); MONO % 11.1 % (3.0-9.0); NEUT # 3.2 10*3/uL (2.3-7.9); NEUT % 48.2 % (47.0-73.0); PLATELET COUNT AUTOMATED 226 10*3/uL (130-400); RED BLOOD COUNT 4.64 10*6/uL (4.10-5.10); RED CELL DISTRI WIDTH 12.3 % (0-14.5); WHITE BLOOD COUNT 6.6 10*3/uL (4.8-10.8)
[2017-10-02 05:57] LABS: BUN 13 mg/dl (7-24); CHLORIDE 109 mmol/L (98-107); CREATININE 0.67 mg/dL (0.55-1.02); POTASSIUM 3.7 mmol/L (3.5-5.1); SODIUM 143 mmol/L (136-145)
[2017-10-02 08:00] VITALS: BP 121/62
[2017-10-02 12:00] VITALS: BP 119/69
[2017-10-02] MEDS ORDERED: METRONIDAZOLE500 M1 PO (13:32)
[2017-10-02] MEDS ORDERED: CIPROFLOXACIN500 M4 PO (13:39)
[2017-10-02] MEDS ORDERED: PANTOPRAZOLE SO40 MG PO (13:39)
[2017-10-02] MEDS ORDERED: Carafate1 GM/10 ML PO (13:39)
[2017-10-16] MEDS ORDERED: GOOD NEIGHBOR L10 MG PO (13:06)
[2017-10-16] MEDS ORDERED: BUTALBIT-ACETA1 EACH PO (13:08)
[2017-10-18] MEDS ORDERED: NORCO 5-325 TA1 EACH PO (10:43)
== END 2017-10-02 14:22 | disposition home or self-care (01) | DRG 872 ==
LOC: ED 13:22 → EDHOLD 17:19 → 4E 17:19
PROVIDERS: Emergency Medicine; Internal Medicine Nephrology
PROC: 0DB68ZX Excision of Stomach, Via Natural or Artificial Opening Endoscopic, Diagnostic (ICD-10-PCS; 2017-09-28)
PROC: 0DBH8ZZ Excision of Cecum, Via Natural or Artificial Opening Endoscopic (ICD-10-PCS; principal; 2017-10-01)
PROC: 0DBN8ZZ Excision of Sigmoid Colon, Via Natural or Artificial Opening Endoscopic (ICD-10-PCS; 2017-10-01)
PROC: 0DBL8ZX Excision of Transverse Colon, Via Natural or Artificial Opening Endoscopic, Diagnostic (ICD-10-PCS; 2017-10-01)
DX: A41.9 Sepsis, unspecified organism (principal); D12.0 Benign neoplasm of cecum; E53.8 Deficiency of other specified B group vitamins; E66.9 Obesity, unspecified; F32.9 Major depressive disorder, single episode, unspecified; K52.9 Noninfective gastroenteritis and colitis, unspecified; G89.29 Other chronic pain; M54.9 Dorsalgia, unspecified; G43.909 Migraine, unspecified, not intractable, without status migrainosus; F17.200 Nicotine dependence, unspecified, uncomplicated; K29.70 Gastritis, unspecified, without bleeding; K44.9 Diaphragmatic hernia without obstruction or gangrene; E55.9 Vitamin D deficiency, unspecified; K21.0 Gastro-esophageal reflux disease with esophagitis; E78.5 Hyperlipidemia, unspecified; K63.89 Other specified diseases of intestine; K63.5 Polyp of colon; Z87.81 Personal history of (healed) traumatic fracture; Z90.710 Acquired absence of both cervix and uterus; Z71.6 Tobacco abuse counseling; Z88.9 Allergy status to unspecified drugs, medicaments and biological substances; Z87.01 Personal history of pneumonia (recurrent); Z98.891 History of uterine scar from previous surgery; Z83.3 Family history of diabetes mellitus; Z79.899 Other long term (current) drug therapy; Z68.38 Body mass index [BMI] 38.0-38.9, adult

== ENCOUNTER 2017-10-11 00:04 | Emergency (ER) | payer OTHER ==
[~2017-10-11] VITALS: Ht 157.4 cm; Wt 91.2 kg
[~2017-10-11 00:04] MED LIST changes: +CIPROFLOXACIN500 M4 PO; +Carafate1 GM/10 ML PO; +METRONIDAZOLE500 M1 PO; +PANTOPRAZOLE SO40 MG PO
[2017-10-11 01:13] LABS: BASO # 0.1 10*3/uL (0.0-0.1); BASO % 0.8 % (0.0-1.0); EOS # 0.3 10*3/uL (0.0-0.4); EOS % 3.4 % (1.0-4.0); HEMATOCRIT 42.2 % (37.0-47.0); HEMOGLOBIN 14.6 g/dl (12.0-16.0); LYMPH # 3.7 10*3/uL (1.3-4.4); LYMPH % 37.6 % (27.0-41.0); MEAN CELL VOLUME 84.2 fl (81.0-99.0); MEAN CORPUSCULAR HGB 29.1 pg (27.0-31.0); MEAN CORPUSCULAR HGB CONC 34.6 g/dl (33.0-37.0); MEAN PLATELET VOLUME 10.2 fl (9.6-12.3); MONO # 0.9 10*3/uL (0.1-1.0); MONO % 9.6 % (3.0-9.0); NEUT # 4.8 10*3/uL (2.3-7.9); NEUT % 48.4 % (47.0-73.0); PLATELET COUNT AUTOMATED 272 10*3/uL (130-400); RED BLOOD COUNT 5.01 10*6/uL (4.10-5.10); RED CELL DISTRI WIDTH 13.2 % (0-14.5); WHITE BLOOD COUNT 9.8 10*3/uL (4.8-10.8)
[2017-10-11 01:30] LABS: ALBUMIN 3.8 gm/dl (3.1-4.5); ALKALINE PHOSPHATASE 98 U/L (45-117); BUN 8 mg/dl (7-24); CHLORIDE 108 mmol/L (98-107); CREATININE 0.62 mg/dL (0.55-1.02); LIPASE 95 U/L (73-393); POTASSIUM 3.7 mmol/L (3.5-5.1); SGOT/AST 15 IU/L (3-35); SGPT/ALT 63 U/L (12-78); SODIUM 143 mmol/L (136-145); TOTAL PROTEIN 7.2 gm/dL (6.4-8.2)
[2017-10-11 01:39] LABS: BILIRUBIN NEGATIVE (NEGATIVE); BLOOD NEGATIVE (NEGATIVE); CLARITY CLEAR (CLEAR); COLOR YELLOW (YELLOW); GLUCOSE NEGATIVE (NEGATIVE); KETONE NEGATIVE (NEGATIVE); LEUKO ESTERASE NEGATIVE (NEGATIVE); NITRITE NEGATIVE (NEGATIVE); PH 6.5 (5.0-9.0); UROBILINOGEN 0.2 E.U./dl (0.2-1.0)
[2017-10-11 01:59] LABS: EPITHELIAL CELLS 15-20; WBC 0-2 wbc/hpf (0-5)
[2017-10-11] MEDS ORDERED: REGLAN5 MG PO (03:06)
[2017-10-11] MEDS ORDERED: ULTRAM50 MG PO (03:07)
[2017-10-16] MEDS ORDERED: GOOD NEIGHBOR L10 MG PO (13:06)
[2017-10-16] MEDS ORDERED: BUTALBIT-ACETA1 EACH PO (13:08)
[2017-10-18] MEDS ORDERED: NORCO 5-325 TA1 EACH PO (10:43)
== END 2017-10-11 03:17 | disposition home or self-care (01) ==
LOC: ED 00:04
PROVIDERS: Physician Assistant
DX: R10.10 Upper abdominal pain, unspecified (principal); R11.2 Nausea with vomiting, unspecified; R68.83 Chills (without fever); E78.5 Hyperlipidemia, unspecified; G43.909 Migraine, unspecified, not intractable, without status migrainosus; Z79.899 Other long term (current) drug therapy; F17.200 Nicotine dependence, unspecified, uncomplicated

== ENCOUNTER → 2017-10-18 | Day surgery (SDC) | payer OTHER ==
[2017-10-17 12:21] LABS: BILIRUBIN NEGATIVE (NEGATIVE); BLOOD TRACE-INTACT (NEGATIVE); CLARITY CLOUDY (CLEAR); COLOR YELLOW (YELLOW); GLUCOSE NEGATIVE (NEGATIVE); KETONE NEGATIVE (NEGATIVE); LEUKO ESTERASE NEGATIVE (NEGATIVE); NITRITE NEGATIVE (NEGATIVE); PH 5.5 (5.0-9.0); UROBILINOGEN 0.2 E.U./dl (0.2-1.0)
[2017-10-17 12:37] LABS: BACTERIA 2+; EPITHELIAL CELLS 45-50
[~2017-10-18] VITALS: Ht 154.9 cm; Wt 94.8 kg
[2017-10-18] VITALS (10 sets, daily range): BP systolic 102–127; BP diastolic 49–84
[~2017-10-18] MED LIST changes: +BUTALBIT-ACETA1 EACH PO; +GOOD NEIGHBOR L10 MG PO; +REGLAN5 MG PO
--- NOTE | ~2017-10-18 | O ---
[place], [place] OPERATIVE NOTE NAME: RADHA LEBLANC [facility] #: [id number] UNIT #: [id number] ROOM: DOCTOR: DARVIN AYALA MD BIRTHDATE: [birth year] DOS: 10/18/2017 PREOPERATIVE DIAGNOSIS: Symptomatic cholelithiasis. POSTOPERATIVE DIAGNOSIS: Symptomatic cholelithiasis. PROCEDURE: Laparoscopic cholecystectomy. SURGEON: Darvin Ayala MD INOCULATOR: MARK. ANESTHESIA: General with endotracheal intubation. INDICATIONS: This is a 32-year-old -[place] lady with a history of symptomatic gallstones, who is here for the above-mentioned procedure. The procedure and its complications were explained to the patient in detail preoperatively. Complications that were discussed included but were not limited to bleeding, infection, hematoma/seroma/abscess formation, biloma formation, incisional hernia formation, damage to lying vital structures, inadvertent injury to the common bile duct and she agreed to proceed. DESCRIPTION OF PROCEDURE: After identifying the patient, the patient was brought to the operating suite and laid in the supine position. After induction of general anesthesia, timeout procedure was called and the parts were then painted and draped in the usual sterile fashion. An incision over a previous subumbilical transverse incision was made. Skin and the subcutaneous tissue were incised in the line of the incision. The fascia was incised vertically and 2 stay sutures with 0 Vicryl were taken on either side, the peritoneum was opened. A 12 mm Loco port was introduced into the peritoneal cavity and a pneumoperitoneum was created. Under direct vision, an epigastric incision of 10 mm and two 5 mm incisions were made in the right upper quadrant and appropriate-size ports were introduced. The gallbladder was retracted superiorly and laterally. The cystic duct and the cystic artery were meticulously dissected until the critical view of safety was obtained and the triangle of Calot was identified. Thereafter, each of these structures were clipped 3 times and cut between the first and the second clip. The gallbladder was then removed from the bed of the gallbladder with the help of electrocautery. It was placed in an EndoCatch bag and removed from the peritoneal cavity and sent for histopathological diagnosis. Hemostasis was achieved in the liver bed and saline was used for irrigation. After hemostasis was confirmed, the saline was sucked away and there was no new bleeding points that could be identified. At this point, the right upper quadrant and the epigastric ports were removed and there was no bleeding seen. The umbilical port was also removed and the pneumoperitoneum was decompressed. The 2 stay sutures were tied together and an additional 0 Vicryl suture was taken to approximate the fascia. Thereafter, 1% plain lidocaine was injected on all the four incisions for local anesthesia and they were then approximated with the help of 4-0 Vicryl in a subcuticular running fashion. Dressings were placed on all the four incisions. The patient was extubated uneventfully and brought back [place], [place] OPERATIVE NOTE NAME: RADHA LEBLANC UNIT #: [id number] ROOM: DOCTOR: DARVIN AYALA MD BIRTHDATE: [birth year] to the recovery room in stable fashion. There were no complications. Dr. Darvin Ayala, the attending surgeon, was present throughout the operating case. Darvin Ayala MD CM:OPRECORD:OPERATIVE NOTE [id number] DARVIN AYALA MD 10/18/17 1127 interface
== END ==
LOC: SDC 10-16 14:45
PROVIDERS: Surgery
DX: K80.10 Calculus of gallbladder with chronic cholecystitis without obstruction (principal); E78.5 Hyperlipidemia, unspecified; K21.9 Gastro-esophageal reflux disease without esophagitis; F17.210 Nicotine dependence, cigarettes, uncomplicated; M19.90 Unspecified osteoarthritis, unspecified site; G43.909 Migraine, unspecified, not intractable, without status migrainosus; G89.29 Other chronic pain; Q85.00 Neurofibromatosis, unspecified; F32.9 Major depressive disorder, single episode, unspecified; E66.9 Obesity, unspecified; Z68.39 Body mass index [BMI] 39.0-39.9, adult; Z85.43 Personal history of malignant neoplasm of ovary; Z90.710 Acquired absence of both cervix and uterus; Z98.891 History of uterine scar from previous surgery; Z79.899 Other long term (current) drug therapy; Z88.6 Allergy status to analgesic agent; Z80.3 Family history of malignant neoplasm of breast

== ENCOUNTER 2017-12-24 23:33 | Emergency (ER) | payer OTHER ==
[~2017-12-24] VITALS: Ht 160 cm; Wt 93.4 kg
[2017-12-25] MEDS ORDERED: PROAIR HFA8.5 GM INH (01:04)
[2017-12-25] MEDS ORDERED: ZITHROMAX250 MG PO (01:04)
[2017-12-25] MEDS ORDERED: MEDROL DOSEPAK4 MG PO (01:04)
== END 2017-12-25 01:07 | disposition home or self-care (01) ==
LOC: ED 23:33
DX: J40 Bronchitis, not specified as acute or chronic (principal); E78.5 Hyperlipidemia, unspecified; G43.909 Migraine, unspecified, not intractable, without status migrainosus; Z88.6 Allergy status to analgesic agent; Z79.899 Other long term (current) drug therapy

== ENCOUNTER → 2018-01-10 | Outpatient (CLI) | payer OTHER ==
[~2018-01-10] MED LIST changes: +PROAIR HFA8.5 GM INH
== END | disposition home or self-care (01) ==
LOC: MRI 11:59
DX: G43.719 Chronic migraine without aura, intractable, without status migrainosus (principal); M54.6 Pain in thoracic spine; Q85.00 Neurofibromatosis, unspecified; G89.29 Other chronic pain

== ENCOUNTER 2018-02-26 08:49 | Emergency (ER) | payer OTHER ==
[~2018-02-26] VITALS: Ht 160 cm; Wt 92.5 kg
[2018-02-26 09:17] LABS: BASO # 0.1 10*3/uL (0.0-0.1); BASO % 0.6 % (0.0-1.0); EOS # 0.6 10*3/uL (0.0-0.4); EOS % 5.4 % (1.0-4.0); HEMATOCRIT 44.9 % (37.0-47.0); HEMOGLOBIN 15.6 g/dl (12.0-16.0); LYMPH % 29.1 % (27.0-41.0); MEAN CELL VOLUME 84.6 fl (81.0-99.0); MEAN CORPUSCULAR HGB 29.4 pg (27.0-31.0); MEAN CORPUSCULAR HGB CONC 34.7 g/dl (33.0-37.0); MEAN PLATELET VOLUME 9.8 fl (9.6-12.3); MONO # 0.7 10*3/uL (0.1-1.0); NEUT % 57.6 % (47.0-73.0); PLATELET COUNT AUTOMATED 282 10*3/uL (130-400); RED BLOOD COUNT 5.31 10*6/uL (4.10-5.10); RED CELL DISTRI WIDTH 12.6 % (0-14.5); WHITE BLOOD COUNT 10.3 10*3/uL (4.8-10.8)
[2018-02-26 09:31] LABS: ALBUMIN 3.5 gm/dl (3.1-4.5); ALKALINE PHOSPHATASE 151 U/L (45-117); BUN 12 mg/dl (7-24); CHLORIDE 110 mmol/L (98-107); CREATININE 0.68 mg/dL (0.55-1.02); POTASSIUM 4.1 mmol/L (3.5-5.1); SGOT/AST 10 IU/L (3-35); SGPT/ALT 26 U/L (12-78); SODIUM 142 mmol/L (136-145); TOTAL PROTEIN 7.8 gm/dL (6.4-8.2)
[2018-02-26] MEDS ORDERED: IMODIUM A-D2 M2 PO (11:21)
[2018-02-26] MEDS ORDERED: ZOFRAN4 MG PO (11:21)
== END 2018-02-26 11:23 | disposition home or self-care (01) ==
LOC: ED 08:49
PROVIDERS: Emergency Medicine
DX: K52.9 Noninfective gastroenteritis and colitis, unspecified (principal); E78.5 Hyperlipidemia, unspecified; G43.909 Migraine, unspecified, not intractable, without status migrainosus; Z88.5 Allergy status to narcotic agent

== ENCOUNTER 2018-08-28 10:19 | Emergency (ER) | payer OTHER ==
[~2018-08-28] VITALS: Wt 90.3 kg
[~2018-08-28 10:19] MED LIST changes: +IMODIUM A-D2 M2 PO
[2018-08-28 11:01] LABS: BASO # 0.1 10*3/uL (0.0-0.1); BASO % 0.9 % (0.0-1.0); EOS # 0.2 10*3/uL (0.0-0.4); EOS % 2.9 % (1.0-4.0); HEMATOCRIT 46.7 % (37.0-47.0); LYMPH # 2.6 10*3/uL (1.3-4.4); LYMPH % 37.8 % (27.0-41.0); MEAN CELL VOLUME 86.3 fl (81.0-99.0); MEAN CORPUSCULAR HGB 29.6 pg (27.0-31.0); MEAN CORPUSCULAR HGB CONC 34.3 g/dl (33.0-37.0); MEAN PLATELET VOLUME 10.7 fl (9.6-12.3); MONO # 0.6 10*3/uL (0.1-1.0); MONO % 8.2 % (3.0-9.0); NEUT # 3.4 10*3/uL (2.3-7.9); NEUT % 50.1 % (47.0-73.0); PLATELET COUNT AUTOMATED 270 10*3/uL (130-400); RED BLOOD COUNT 5.41 10*6/uL (4.10-5.10); RED CELL DISTRI WIDTH 13.2 % (0-14.5); WHITE BLOOD COUNT 6.8 10*3/uL (4.8-10.8)
[2018-08-28 11:12] LABS: ALBUMIN 3.8 gm/dl (3.1-4.5); ALKALINE PHOSPHATASE 132 U/L (45-117); BUN 14 mg/dl (7-24); CHLORIDE 109 mmol/L (98-107); CREATININE 0.67 mg/dL (0.55-1.02); LIPASE 74 U/L (73-393); POTASSIUM 4.4 mmol/L (3.5-5.1); SGOT/AST 15 IU/L (3-35); SGPT/ALT 33 U/L (12-78); SODIUM 140 mmol/L (136-145); TOTAL PROTEIN 7.8 gm/dL (6.4-8.2)
[2018-08-28 11:38] LABS: ACT PARTIAL THROMBO TIME 24.8 SECONDS (20.0-32.1); INTERNATIONAL NORM RATIO 0.9 (2.0-3.5)
[2018-08-28 12:00] LABS: BILIRUBIN NEGATIVE (NEGATIVE); BLOOD NEGATIVE (NEGATIVE); CLARITY CLEAR (CLEAR); COLOR YELLOW (YELLOW); GLUCOSE NEGATIVE (NEGATIVE); KETONE NEGATIVE (NEGATIVE); LEUKO ESTERASE NEGATIVE (NEGATIVE); NITRITE NEGATIVE (NEGATIVE); PH 5.5 (5.0-9.0); UROBILINOGEN 0.2 E.U./dl (0.2-1.0)
[2018-08-28 12:44] LABS: BACTERIA 3+; EPITHELIAL CELLS 25-30; MUCOUS 1+; WBC 0-2 wbc/hpf (0-5)
[2018-08-28] MEDS ORDERED: TYLENOL325 M1 PO (12:56)
[2018-08-28] MEDS ORDERED: PRILOSEC20 M1 PO (12:56)
== END 2018-08-28 13:00 | disposition home or self-care (01) ==
LOC: ED 10:19
PROVIDERS: Emergency Medicine
DX: R10.13 Epigastric pain (principal); R10.11 Right upper quadrant pain; R11.2 Nausea with vomiting, unspecified; R19.7 Diarrhea, unspecified; G89.29 Other chronic pain; E78.5 Hyperlipidemia, unspecified; G43.909 Migraine, unspecified, not intractable, without status migrainosus; F17.200 Nicotine dependence, unspecified, uncomplicated; Z90.49 Acquired absence of other specified parts of digestive tract; Z90.710 Acquired absence of both cervix and uterus; Z85.43 Personal history of malignant neoplasm of ovary; Z88.8 Allergy status to other drugs, medicaments and biological substances

== ENCOUNTER 2018-08-31 22:10 | Emergency (ER) | payer OTHER ==
[~2018-08-31] VITALS: Ht 160 cm; Wt 90.3 kg
[~2018-08-31 22:10] MED LIST changes: +PRILOSEC20 M1 PO; +TYLENOL325 M1 PO
[2018-08-31 22:54] LABS: BASO # 0.1 10*3/uL (0.0-0.1); BASO % 0.7 % (0.0-1.0); EOS # 0.4 10*3/uL (0.0-0.4); EOS % 4.2 % (1.0-4.0); HEMATOCRIT 45.2 % (37.0-47.0); HEMOGLOBIN 15.5 g/dl (12.0-16.0); LYMPH # 3.7 10*3/uL (1.3-4.4); LYMPH % 42.4 % (27.0-41.0); MEAN CELL VOLUME 85.8 fl (81.0-99.0); MEAN CORPUSCULAR HGB 29.4 pg (27.0-31.0); MEAN CORPUSCULAR HGB CONC 34.3 g/dl (33.0-37.0); MONO # 0.6 10*3/uL (0.1-1.0); MONO % 7.2 % (3.0-9.0); NEUT % 45.3 % (47.0-73.0); PLATELET COUNT AUTOMATED 272 10*3/uL (130-400); RED BLOOD COUNT 5.27 10*6/uL (4.10-5.10); RED CELL DISTRI WIDTH 13.1 % (0-14.5); WHITE BLOOD COUNT 8.7 10*3/uL (4.8-10.8)
[2018-08-31 22:57] LABS: BILIRUBIN NEGATIVE (NEGATIVE); BLOOD NEGATIVE (NEGATIVE); CLARITY CLEAR (CLEAR); COLOR YELLOW (YELLOW); GLUCOSE NEGATIVE (NEGATIVE); KETONE NEGATIVE (NEGATIVE); LEUKO ESTERASE NEGATIVE (NEGATIVE); NITRITE NEGATIVE (NEGATIVE); PH 5.5 (5.0-9.0); SPECIFIC GRAVITY 1.025 (1.005-1.030); UROBILINOGEN 0.2 E.U./dl (0.2-1.0)
[2018-08-31 23:06] LABS: URINE AMPHETAMINES > 1000 (1000ng/ml); URINE BARBITURATES < 200 (200ng/ml); URINE BENZODIAZEPINES < 200 (200ng/ml); URINE CANNABINOIDS (THC) > 50 (50ng/ml); URINE COCAINE < 300 (300ng/ml); URINE METHADONE < 300 (300ng/ml); URINE OPIATES < 300 (300ng/ml)
[2018-08-31 23:07] LABS: URINE PHENCYCLIDINE < 25 (25ng/ml)
[2018-08-31 23:09] LABS: ALBUMIN 3.9 gm/dl (3.1-4.5); ALKALINE PHOSPHATASE 121 U/L (45-117); BUN 10 mg/dl (7-24); CHLORIDE 106 mmol/L (98-107); CREATININE 0.67 mg/dL (0.55-1.02); LIPASE 69 U/L (73-393); SGOT/AST 12 IU/L (3-35); SGPT/ALT 24 U/L (12-78); SODIUM 140 mmol/L (136-145); TOTAL PROTEIN 7.7 gm/dL (6.4-8.2)
[2018-08-31 23:17] LABS: MUCOUS TRACE
[2018-09-01] MEDS ORDERED: REGLAN10 M1 PO (01:18)
== END 2018-09-01 01:31 | disposition home or self-care (01) ==
LOC: ED 22:10
PROVIDERS: Physician Assistant
DX: R10.13 Epigastric pain (principal); R11.2 Nausea with vomiting, unspecified; F17.200 Nicotine dependence, unspecified, uncomplicated; Z88.6 Allergy status to analgesic agent; Z87.19 Personal history of other diseases of the digestive system; Z98.890 Other specified postprocedural states; Z90.710 Acquired absence of both cervix and uterus

== ENCOUNTER 2018-09-09 10:59 | Emergency (ER) | payer MEDICAID ==
[~2018-09-09] VITALS: Ht 160 cm; Wt 86.2 kg
[~2018-09-09 10:59] MED LIST changes: +REGLAN10 M1 PO
[2018-09-09 11:50] LABS: BASO # 0.1 10*3/uL (0.0-0.1); BASO % 0.8 % (0.0-1.0); EOS # 0.2 10*3/uL (0.0-0.4); EOS % 2.8 % (1.0-4.0); HEMATOCRIT 48.1 % (37.0-47.0); HEMOGLOBIN 16.5 g/dl (12.0-16.0); LYMPH # 3.1 10*3/uL (1.3-4.4); LYMPH % 36.9 % (27.0-41.0); MEAN CELL VOLUME 85.1 fl (81.0-99.0); MEAN CORPUSCULAR HGB 29.2 pg (27.0-31.0); MEAN CORPUSCULAR HGB CONC 34.3 g/dl (33.0-37.0); MEAN PLATELET VOLUME 10.5 fl (9.6-12.3); MONO # 0.6 10*3/uL (0.1-1.0); NEUT # 4.4 10*3/uL (2.3-7.9); NEUT % 52.4 % (47.0-73.0); PLATELET COUNT AUTOMATED 297 10*3/uL (130-400); RED BLOOD COUNT 5.65 10*6/uL (4.10-5.10); RED CELL DISTRI WIDTH 12.8 % (0-14.5); WHITE BLOOD COUNT 8.3 10*3/uL (4.8-10.8)
[2018-09-09 12:08] LABS: ALKALINE PHOSPHATASE 138 U/L (45-117); BUN 13 mg/dl (7-24); CHLORIDE 108 mmol/L (98-107); CREATININE 0.66 mg/dL (0.55-1.02); LIPASE 45 U/L (73-393); POTASSIUM 4.1 mmol/L (3.5-5.1); SGOT/AST 13 IU/L (3-35); SGPT/ALT 29 U/L (12-78); SODIUM 140 mmol/L (136-145)
[2018-09-09 12:59] LABS: BILIRUBIN NEGATIVE (NEGATIVE); BLOOD NEGATIVE (NEGATIVE); CLARITY SL CLOUDY (CLEAR); COLOR YELLOW (YELLOW); GLUCOSE NEGATIVE (NEGATIVE); KETONE NEGATIVE (NEGATIVE); LEUKO ESTERASE NEGATIVE (NEGATIVE); NITRITE NEGATIVE (NEGATIVE); SPECIFIC GRAVITY 1.025 (1.005-1.030); UROBILINOGEN 0.2 E.U./dl (0.2-1.0)
[2018-09-09 13:08] LABS: BACTERIA 2+; EPITHELIAL CELLS 16-20; MUCOUS 2+; WBC 0-2 wbc/hpf (0-5)
[2018-09-09] MEDS ORDERED: NEXIUM40 MG PO (13:44)
[2018-09-09] MEDS ORDERED: CARAFATE1 G1 PO (13:44)
== END 2018-09-09 13:49 | disposition home or self-care (01) ==
LOC: ED 10:59
PROVIDERS: Nurse Practitioner Family
DX: K29.00 Acute gastritis without bleeding (principal); F17.200 Nicotine dependence, unspecified, uncomplicated; Z88.6 Allergy status to analgesic agent; Z90.49 Acquired absence of other specified parts of digestive tract

== ENCOUNTER 2018-10-20 03:49 | Emergency (ER) | payer OTHER ==
[~2018-10-20] VITALS: Ht 160 cm; Wt 87.1 kg
[~2018-10-20 03:49] MED LIST changes: +CARAFATE1 G1 PO; +NEXIUM40 MG PO
[2018-10-20] MEDS ORDERED: CYCLOBENZAPRINE5 M3 PO (04:25)
[2018-10-20] MEDS ORDERED: Motrin,Rufen800 MG PO (04:25)
== END 2018-10-20 05:08 | disposition home or self-care (01) ==
LOC: ED 03:49
DX: S16.1XXA Strain of muscle, fascia and tendon at neck level, initial encounter (principal); M54.9 Dorsalgia, unspecified; G89.29 Other chronic pain; E78.5 Hyperlipidemia, unspecified; G43.909 Migraine, unspecified, not intractable, without status migrainosus; F17.200 Nicotine dependence, unspecified, uncomplicated; Z88.8 Allergy status to other drugs, medicaments and biological substances; Z79.899 Other long term (current) drug therapy; Z90.710 Acquired absence of both cervix and uterus; X50.9XXA Other and unspecified overexertion or strenuous movements or postures, initial encounter; Y93.I9 Activity, other involving external motion; Y92.488 Other paved roadways as the place of occurrence of the external cause; Y99.8 Other external cause status

== ENCOUNTER 2018-10-22 13:54 | Emergency (ER) | payer OTHER ==
[~2018-10-22] VITALS: Ht 160 cm; Wt 88.9 kg
--- NOTE | ~2018-10-22 | EKG ---
[place], [place] ELECTROCARDIOGRAM REPORT NAME: RADHA LEBLANC UNIT #: [id number] ROOM: DOCTOR: EPIPHANY DRAFT REPORT BIRTHDATE: [birth year] [facility] Test Date: 2018-10-22 Test Time: 14:43:35 Pat Name: RADHA LEBLANC Department: ED Room: 7 Gender: F Highway Design Engineer: Sara Corrales : 1985 Requested By: TAWANDA LOMELI Order Number: [id number] Reading MD: Henry Ward MD Measurements Intervals Mona Rate: 106 P: 52 VA: 183 QRS: -18 QRSD: 87 T: 90 QT: 328 QTc: 436 Interpretive Statements Sinus tachycardia Poor R wave progression Electronically Signed On 10-23-2018 5:07:36 PDT by Henry Ward MD CM:EKGRPT:ELECTROCARDIOGRAM REPORT [phone] TAWANDA LOMELI EPIPHANY DRAFT REPORT TAWANDA LOMELI
[2018-10-22 14:43] LABS: BASO # 0.1 10*3/uL (0.0-0.1); BASO % 0.4 % (0.0-1.0); EOS # 0.2 10*3/uL (0.0-0.4); EOS % 1.4 % (1.0-4.0); HEMATOCRIT 44.7 % (37.0-47.0); HEMOGLOBIN 15.1 g/dl (12.0-16.0); LYMPH # 2.6 10*3/uL (1.3-4.4); LYMPH % 22.7 % (27.0-41.0); MEAN CELL VOLUME 85.5 fl (81.0-99.0); MEAN CORPUSCULAR HGB 28.9 pg (27.0-31.0); MEAN CORPUSCULAR HGB CONC 33.8 g/dl (33.0-37.0); MEAN PLATELET VOLUME 10.1 fl (9.6-12.3); MONO # 1.1 10*3/uL (0.1-1.0); NEUT # 7.7 10*3/uL (2.3-7.9); NEUT % 66.2 % (47.0-73.0); PLATELET COUNT AUTOMATED 251 10*3/uL (130-400); RED BLOOD COUNT 5.23 10*6/uL (4.10-5.10); RED CELL DISTRI WIDTH 12.6 % (0-14.5); WHITE BLOOD COUNT 11.6 10*3/uL (4.8-10.8)
[2018-10-22 15:00] LABS: ACT PARTIAL THROMBO TIME 27.6 SECONDS (20.0-32.1); ALBUMIN 3.2 gm/dl (3.1-4.5); ALKALINE PHOSPHATASE 149 U/L (45-117); BUN 7 mg/dl (7-24); CHLORIDE 101 mmol/L (98-107); CREATININE 0.75 mg/dL (0.55-1.02); LIPASE 34 U/L (73-393); POTASSIUM 4.3 mmol/L (3.5-5.1); SGOT/AST 22 IU/L (3-35); SGPT/ALT 35 U/L (12-78); SODIUM 136 mmol/L (136-145); TOTAL PROTEIN 7.8 gm/dL (6.4-8.2)
[2018-10-22 15:11] LABS: TROPONIN I < 0.015 ng/ml (<0.045)
[2018-10-22] MEDS ORDERED: LEVAQUIN750 M1 PO (15:31)
== END 2018-10-22 15:50 | disposition home or self-care (01) ==
LOC: ED 13:54
PROVIDERS: Nurse Practitioner Family
DX: J18.1 Lobar pneumonia, unspecified organism (principal); G43.909 Migraine, unspecified, not intractable, without status migrainosus; E78.5 Hyperlipidemia, unspecified; G89.29 Other chronic pain; F17.200 Nicotine dependence, unspecified, uncomplicated; Z88.8 Allergy status to other drugs, medicaments and biological substances; Z79.899 Other long term (current) drug therapy; Z90.710 Acquired absence of both cervix and uterus

== ENCOUNTER 2019-04-18 17:52 | Emergency (ER) | payer OTHER ==
[~2019-04-18] VITALS: Ht 160 cm; Wt 98.0 kg
[~2019-04-18 17:52] MED LIST changes: +LEVAQUIN750 M1 PO
[2019-04-18 20:17] LABS: BILIRUBIN NEGATIVE (NEGATIVE); BLOOD NEGATIVE (NEGATIVE); CLARITY CLEAR (CLEAR); COLOR YELLOW (YELLOW); GLUCOSE NEGATIVE (NEGATIVE); KETONE NEGATIVE (NEGATIVE); LEUKO ESTERASE NEGATIVE (NEGATIVE); NITRITE NEGATIVE (NEGATIVE); UROBILINOGEN 0.2 E.U./dl (0.2-1.0)
[2019-04-18 20:22] LABS: BACTERIA TRACE; EPITHELIAL CELLS 21-30; MUCOUS 1+; WBC 0-2 wbc/hpf (0-5)
[2019-04-18] MEDS ORDERED: ROBAXIN-750750 MG PO (20:44)
== END 2019-04-18 20:48 | disposition home or self-care (01) ==
LOC: ED 17:52
PROVIDERS: Nurse Practitioner Family
DX: M54.17 Radiculopathy, lumbosacral region (principal); F32.9 Major depressive disorder, single episode, unspecified; E78.5 Hyperlipidemia, unspecified; G43.909 Migraine, unspecified, not intractable, without status migrainosus; Z88.8 Allergy status to other drugs, medicaments and biological substances; Z79.899 Other long term (current) drug therapy

== ENCOUNTER 2019-07-04 12:50 | Emergency (ER) | payer OTHER ==
[~2019-07-04] VITALS: Ht 160 cm; Wt 95.3 kg
[~2019-07-04 12:50] MED LIST changes: +ROBAXIN-750750 MG PO
[2019-07-04] MEDS ORDERED: OCUFLOX 0.3% 5 M5 ML OPH (14:02)
[2019-07-04] MEDS ORDERED: TRAMADOL HCL50 MG PO (14:04)
== END 2019-07-04 14:20 | disposition home or self-care (01) ==
LOC: ED 12:50
DX: S05.01XA Injury of conjunctiva and corneal abrasion without foreign body, right eye, initial encounter (principal); K21.9 Gastro-esophageal reflux disease without esophagitis; G43.909 Migraine, unspecified, not intractable, without status migrainosus; F32.9 Major depressive disorder, single episode, unspecified; Z88.8 Allergy status to other drugs, medicaments and biological substances; Z79.899 Other long term (current) drug therapy; Z90.710 Acquired absence of both cervix and uterus; W54.1XXA Struck by dog, initial encounter; Y93.89 Activity, other specified; Y92.89 Other specified places as the place of occurrence of the external cause; Y99.8 Other external cause status

== ENCOUNTER → 2019-12-23 | Outpatient (CLI) | payer OTHER ==
[~2019-12-23] MED LIST changes: +OCUFLOX 0.3% 5 M5 ML OPH; +TRAMADOL HCL50 MG PO
== END | disposition home or self-care (01) ==
LOC: CARD 12:15
DX: Z01.810 Encounter for preprocedural cardiovascular examination (principal); R00.0 Tachycardia, unspecified

== ENCOUNTER 2020-01-03 07:51 | Emergency (ER) | payer OTHER ==
[2020-01-03] MEDS ORDERED: Motrin,Rufen800 MG PO (11:18)
== END 2020-01-03 11:43 | disposition home or self-care (01) ==
LOC: ED 07:51
DX: M79.645 Pain in left finger(s) (principal); K21.9 Gastro-esophageal reflux disease without esophagitis; G43.909 Migraine, unspecified, not intractable, without status migrainosus; F32.9 Major depressive disorder, single episode, unspecified; F17.200 Nicotine dependence, unspecified, uncomplicated; Z88.8 Allergy status to other drugs, medicaments and biological substances; Z79.899 Other long term (current) drug therapy

== ENCOUNTER → 2020-01-19 | Outpatient (CLI) | payer OTHER | END | disposition home or self-care (01) | LOC: CARD 08:23 | PROVIDERS: ATTEND Internal Medicine Cardiovascular Disease | DX: Z01.810 Encounter for preprocedural cardiovascular examination (principal); R00.2 Palpitations; R94.31 Abnormal electrocardiogram [ECG] [EKG]; R07.9 Chest pain, unspecified; Z72.0 Tobacco use ==

== ENCOUNTER 2020-03-23 22:21 | Emergency (ER) | payer OTHER ==
[~2020-03-23] VITALS: Wt 83.9 kg
== END 2020-03-23 23:17 | disposition home or self-care (01) ==
LOC: ED 22:21
DX: H92.01 Otalgia, right ear (principal); Z88.8 Allergy status to other drugs, medicaments and biological substances; Z87.891 Personal history of nicotine dependence

== ENCOUNTER → 2020-04-30 | Outpatient (CLI) | payer OTHER | END | disposition home or self-care (01) | LOC: LAB 11:46 | PROVIDERS: ATTEND Nurse Practitioner Women's Health | DX: N64.4 Mastodynia (principal); N64.52 Nipple discharge; L29.9 Pruritus, unspecified ==

== ENCOUNTER → 2020-05-11 | Outpatient (CLI) | payer OTHER | END | disposition home or self-care (01) | LOC: MAMMO 12:54 | PROVIDERS: ATTEND Nurse Practitioner Women's Health | DX: N64.89 Other specified disorders of breast (principal); N64.4 Mastodynia; N64.52 Nipple discharge; L29.9 Pruritus, unspecified ==

== ENCOUNTER 2020-09-05 13:57 | Emergency (ER) | payer OTHER ==
[~2020-09-05] VITALS: Ht 160 cm; Wt 90.7 kg
== END 2020-09-05 16:37 | disposition home or self-care (01) ==
LOC: ED 13:57
DX: M79.604 Pain in right leg (principal); G89.29 Other chronic pain; F17.200 Nicotine dependence, unspecified, uncomplicated; Z98.890 Other specified postprocedural states; Z90.710 Acquired absence of both cervix and uterus; Z79.899 Other long term (current) drug therapy; Z88.6 Allergy status to analgesic agent

== ENCOUNTER 2020-12-09 16:08 | Emergency (ER) | payer OTHER ==
[~2020-12-09] VITALS: Ht 160 cm; Wt 88.9 kg
== END 2020-12-09 19:00 | disposition left against medical advice (07) ==
LOC: ED 16:08
DX: R05 Cough (principal); R06.02 Shortness of breath; Z53.21 Procedure and treatment not carried out due to patient leaving prior to being seen by health care provider

== ENCOUNTER 2022-08-21 17:09 | Emergency (ER) | payer OTHER ==
[~2022-08-21] VITALS: Ht 162.5 cm; Wt 93.4 kg
[2022-08-21 19:08] LABS: BASO # 0.1 10*3/uL (0.0-0.1); BASO % 0.9 % (0.0-1.0); EOS # 0.2 10*3/uL (0.0-0.4); EOS % 2.2 % (1.0-4.0); HEMATOCRIT 43.9 % (37.0-47.0); LYMPH # 3.7 10*3/uL (1.3-4.4); LYMPH % 40.3 % (27.0-41.0); MEAN CELL VOLUME 83.6 fl (81.0-99.0); MEAN CORPUSCULAR HGB 28.8 pg (27.0-31.0); MEAN CORPUSCULAR HGB CONC 34.4 g/dl (33.0-37.0); MEAN PLATELET VOLUME 10.1 fl (9.6-12.3); MONO % 11.2 % (3.0-9.0); NEUT # 4.2 10*3/uL (2.3-7.9); NEUT % 45.2 % (47.0-73.0); PLATELET COUNT AUTOMATED 321 10*3/uL (130-400); RED BLOOD COUNT 5.25 10*6/uL (4.10-5.10); RED CELL DISTRI WIDTH 12.6 % (0-14.5); WHITE BLOOD COUNT 9.2 10*3/uL (4.8-10.8)
[2022-08-21 19:25] LABS: ALKALINE PHOSPHATASE 120 U/L (46-116); BUN 9 mg/dl (9-23); CHLORIDE 108 mmol/L (98-107); POTASSIUM 3.8 mmol/L (3.4-5.1); SGPT/ALT 59 U/L (10-49); TOTAL PROTEIN 7.1 gm/dL (6.0-8.0)
== END 2022-08-21 21:00 | disposition home or self-care (01) ==
LOC: ED 17:09
PROVIDERS: Physician Assistant
DX: Q85.00 Neurofibromatosis, unspecified (principal); M54.50 Low back pain, unspecified; R20.0 Anesthesia of skin; R20.2 Paresthesia of skin; F17.200 Nicotine dependence, unspecified, uncomplicated; R11.10 Vomiting, unspecified; Z88.8 Allergy status to other drugs, medicaments and biological substances; Z79.899 Other long term (current) drug therapy; Z79.2 Long term (current) use of antibiotics; Z90.711 Acquired absence of uterus with remaining cervical stump; Z98.890 Other specified postprocedural states

== ENCOUNTER 2022-09-08 10:26 | Emergency (ER) | payer OTHER ==
[~2022-09-08] VITALS: Wt 93.4 kg
[2022-09-08] MEDS ORDERED: PEPCID20 MG PO (10:57)
[2022-09-08] MEDS ORDERED: BUPROPION HYDR150 M1 PO (10:57)
[2022-09-08] MEDS ORDERED: ADDERALL XR 3030 MG PO (10:57)
[2022-09-08] MEDS ORDERED: RAMELTEON8 MG PO (11:02)
== END 2022-09-08 12:35 | disposition home or self-care (01) ==
LOC: ED 10:26
DX: S69.92XA Unspecified injury of left wrist, hand and finger(s), initial encounter (principal); G89.29 Other chronic pain; F17.200 Nicotine dependence, unspecified, uncomplicated; Z88.8 Allergy status to other drugs, medicaments and biological substances; Z79.899 Other long term (current) drug therapy; Z98.890 Other specified postprocedural states; Z90.711 Acquired absence of uterus with remaining cervical stump; W50.0XXA Accidental hit or strike by another person, initial encounter; Y93.89 Activity, other specified; Y92.89 Other specified places as the place of occurrence of the external cause; Y99.8 Other external cause status

== ENCOUNTER → 2023-01-24 | Outpatient (CLI) | payer OTHER ==
[~2023-01-24] MED LIST changes: +ADDERALL XR 3030 MG PO; +BUPROPION HYDR150 M1 PO; +PEPCID20 MG PO; +RAMELTEON8 MG PO
[2023-01-24 09:09] LABS: ALKALINE PHOSPHATASE 152 U/L (46-116); BUN 10 mg/dl (9-23); CHLORIDE 106 mmol/L (98-107); POTASSIUM 3.8 mmol/L (3.4-5.1); SGPT/ALT 63 U/L (5-49); TOTAL PROTEIN 7.8 gm/dL (6.0-8.0)
[2023-01-25 06:07] LABS: HBSAG Negative (Negative); HEP B CORE AB, IGM Negative (Negative); HEPATITIS C ANTIBODY Non Reactive (Non Reactive)
== END | disposition home or self-care (01) ==
LOC: LAB 01:07
PROVIDERS: ATTEND Internal Medicine
DX: R74.01 Elevation of levels of liver transaminase levels (principal); R00.0 Tachycardia, unspecified

== ENCOUNTER 2023-03-04 09:04 | Emergency (ER) | payer OTHER ==
[~2023-03-04] VITALS: Ht 160 cm; Wt 93.4 kg
[2023-03-04] MEDS ORDERED: AZASITE2.5 ML OP (09:36)
== END 2023-03-04 09:42 | disposition home or self-care (01) ==
LOC: ED 09:04
DX: H00.013 Hordeolum externum right eye, unspecified eyelid (principal); F17.200 Nicotine dependence, unspecified, uncomplicated; Z88.8 Allergy status to other drugs, medicaments and biological substances; Z79.899 Other long term (current) drug therapy; Z98.890 Other specified postprocedural states; Z90.711 Acquired absence of uterus with remaining cervical stump

== ENCOUNTER → 2023-04-09 | Outpatient (CLI) | payer OTHER ==
[~2023-04-09] MED LIST changes: +AZASITE2.5 ML OP
== END | disposition home or self-care (01) ==
LOC: US 02:02
PROVIDERS: ATTEND Internal Medicine
DX: R74.01 Elevation of levels of liver transaminase levels (principal); K76.0 Fatty (change of) liver, not elsewhere classified

== ENCOUNTER → 2023-04-17 | Outpatient (CLI) | payer OTHER | END | disposition home or self-care (01) | LOC: MAMMO 03:27 | PROVIDERS: ATTEND Internal Medicine | DX: Z12.31 Encounter for screening mammogram for malignant neoplasm of breast (principal); N63.11 Unspecified lump in the right breast, upper outer quadrant; Z80.3 Family history of malignant neoplasm of breast ==

== ENCOUNTER → 2023-07-30 | Day surgery (SDC) | payer OTHER ==
[2023-07-30] VITALS (7 sets, daily range): BP systolic 97–140; BP diastolic 51–72
[~2023-07-30] VITALS: Ht 162.5 cm; Wt 93.4 kg
[~2023-07-30] MED LIST changes: +Albuterol Sulfate 2.5 MG/3 ML VIAL NEB ONE; +BENZONATATE100 M1 PO; +GLYCOPYRROLATE 0.4 MG/2 ML VIAL IV ONE; +HYDROCODONE-AC1 EAC1 PO; +Ketamine Hydrochloride 50 MG/5 ML SYRINGE IV ONE; +Lidocaine Hydrochloride 2% 10 ML AMP IM ONE; +Lidocaine Hydrochloride 30 ML VIAL ONE; +Midazolam Hydrochloride 2 MG/2 ML VIAL IV ONE; +PROPOFOL 200 MG/20 ML VIAL IV ONE; +SEVOFLURANE 250 ML BOT INH ONE; +SODIUM CHLORIDE 0.9% 1,000 ML IV ONE; +SODIUM CHLORIDE 0.9% 1,000 ML IV SCH; +VENT7GM INH; +ceFAZolin sodium/sodium chlor 20 ML IV ONE; +fentaNYL CITRATE 100 MCG/2 ML VIAL IV ONE; +fentaNYL CITRATE/PF 50 MCG/ML SYRINGE IV ONE; +fentaNYL CITRATE/PF 50 MCG/ML SYRINGE ONE
== END | disposition home or self-care (01) ==
LOC: SDC 07-16 11:00
PROVIDERS: ATTEND Surgery
DX: Q85.02 Neurofibromatosis, type 2 (principal); N64.9 Disorder of breast, unspecified; E55.9 Vitamin D deficiency, unspecified; J40 Bronchitis, not specified as acute or chronic; C56.1 Malignant neoplasm of right ovary; F32.A Depression, unspecified; K21.9 Gastro-esophageal reflux disease without esophagitis; Z90.710 Acquired absence of both cervix and uterus; Z98.891 History of uterine scar from previous surgery; Z98.890 Other specified postprocedural states; Z83.3 Family history of diabetes mellitus; Z80.3 Family history of malignant neoplasm of breast

== ENCOUNTER 2023-08-01 10:23 | Emergency (ER) | payer OTHER ==
[~2023-08-01] VITALS: Ht 162.5 cm; Wt 93.4 kg
[~2023-08-01 10:23] MED LIST changes: -Albuterol Sulfate 2.5 MG/3 ML VIAL NEB ONE; -GLYCOPYRROLATE 0.4 MG/2 ML VIAL IV ONE; -Ketamine Hydrochloride 50 MG/5 ML SYRINGE IV ONE; -Lidocaine Hydrochloride 2% 10 ML AMP IM ONE; -Lidocaine Hydrochloride 30 ML VIAL ONE; -Midazolam Hydrochloride 2 MG/2 ML VIAL IV ONE; -PROPOFOL 200 MG/20 ML VIAL IV ONE; -SEVOFLURANE 250 ML BOT INH ONE; -SODIUM CHLORIDE 0.9% 1,000 ML IV ONE; -SODIUM CHLORIDE 0.9% 1,000 ML IV SCH; -ceFAZolin sodium/sodium chlor 20 ML IV ONE; -fentaNYL CITRATE 100 MCG/2 ML VIAL IV ONE; -fentaNYL CITRATE/PF 50 MCG/ML SYRINGE IV ONE; -fentaNYL CITRATE/PF 50 MCG/ML SYRINGE ONE
[2023-08-01] MEDS ORDERED: SODIUM CHLORIDE 0.9% 1,000 ML IV ONE (12:00)
[2023-08-01 12:18] LABS: BASO # 0.1 10*3/uL (0.0-0.1); BASO % 0.5 % (0.0-1.0); EOS # 0.2 10*3/uL (0.0-0.4); HEMATOCRIT 44.1 % (37.0-47.0); LYMPH # 2.8 10*3/uL (1.3-4.4); LYMPH % 29.6 % (27.0-41.0); MEAN CELL VOLUME 83.8 fl (81.0-99.0); MEAN CORPUSCULAR HGB 28.5 pg (27.0-31.0); MONO # 0.6 10*3/uL (0.1-1.0); MONO % 5.8 % (3.0-9.0); NEUT # 5.9 10*3/uL (2.3-7.9); NEUT % 61.9 % (47.0-73.0); PLATELET COUNT AUTOMATED 259 10*3/uL (130-400); RED BLOOD COUNT 5.26 10*6/uL (4.10-5.10); WHITE BLOOD COUNT 9.5 10*3/uL (4.8-10.8)
[2023-08-01 12:33] LABS: ACT PARTIAL THROMBO TIME 25.5 SECONDS (20.0-32.1)
[2023-08-01 12:38] LABS: ALKALINE PHOSPHATASE 119 U/L (46-116); BUN 10 mg/dl (9-23); CHLORIDE 105 mmol/L (98-107); POTASSIUM 3.4 mmol/L (3.4-5.1); SGPT/ALT 39 U/L (5-49)
== END 2023-08-01 14:17 | disposition home or self-care (01) ==
LOC: ED 10:23
PROVIDERS: Internal Medicine
DX: R04.2 Hemoptysis (principal); F17.200 Nicotine dependence, unspecified, uncomplicated; Z88.8 Allergy status to other drugs, medicaments and biological substances; Z79.2 Long term (current) use of antibiotics; Z79.899 Other long term (current) drug therapy; Z98.890 Other specified postprocedural states; Z90.711 Acquired absence of uterus with remaining cervical stump

== ENCOUNTER 2023-10-25 07:45 | Emergency (ER) | payer OTHER ==
[~2023-10-25] VITALS: Ht 160 cm; Wt 93.4 kg
[2023-10-25] MEDS ORDERED: Dexamethasone Sodium Phospha 20 MG/5 ML VIAL IM ONE (08:10)
[2023-10-25] MEDS ORDERED: Cyclobenzaprine Hydrochlorid 10 MG TAB PO ONE (08:10)
[2023-10-25] MEDS ORDERED: LIDOCAINE 1 EA PATCH T ONE (08:10)
[2023-10-25] MEDS ORDERED: Ketorolac Tromethamine 30 MG/ML VIAL IM ONE (08:10)
[2023-10-25] MEDS ORDERED: PAIN RELIEF PA1 EACH T (09:01)
[2023-10-25] MEDS ORDERED: MEDROL DOSEPAK4 MG PO (09:01)
[2023-10-25] MEDS ORDERED: CYCLOBENZAPRINE5 M3 PO (09:01)
[2023-10-25] MEDS ORDERED: MELOXICAM15 MG PO (09:01)
== END 2023-10-25 09:07 | disposition home or self-care (01) ==
LOC: ED 07:45
DX: M62.830 Muscle spasm of back (principal); M79.604 Pain in right leg; K21.9 Gastro-esophageal reflux disease without esophagitis; G43.909 Migraine, unspecified, not intractable, without status migrainosus; F32.A Depression, unspecified; Z88.6 Allergy status to analgesic agent; Z90.710 Acquired absence of both cervix and uterus; Z98.890 Other specified postprocedural states; F17.200 Nicotine dependence, unspecified, uncomplicated

== ENCOUNTER 2023-11-18 22:11 | Emergency (ER) | payer OTHER ==
[~2023-11-18 22:11] MED LIST changes: +MELOXICAM15 MG PO; +PAIN RELIEF PA1 EACH T
[2023-11-18] MEDS ORDERED: ACETAMINOPHEN 325 MG TAB PO ONE (22:30)
== END 2023-11-18 23:09 | disposition home or self-care (01) ==
LOC: ED 22:11
DX: U07.1 COVID-19 (principal); K21.9 Gastro-esophageal reflux disease without esophagitis; G43.909 Migraine, unspecified, not intractable, without status migrainosus; F32.A Depression, unspecified; F17.200 Nicotine dependence, unspecified, uncomplicated; Z88.6 Allergy status to analgesic agent; Z98.890 Other specified postprocedural states; Z90.710 Acquired absence of both cervix and uterus

== ENCOUNTER 2024-04-15 08:28 | Emergency (ER) | payer OTHER ==
[~2024-04-15] VITALS: Ht 160 cm; Wt 93.4 kg
[~2024-04-15 08:28] MED LIST changes: +LIPITOR40 MG PO
[2024-04-15] MEDS ORDERED: GABAPENTIN100 M2 PO (08:38)
[2024-04-15] MEDS ORDERED: PROPRANOLOL ER80 MG PO (08:38)
[2024-04-15] MEDS ORDERED: PHENTERMINE H37.5 M3 PO (08:39)
[2024-04-15] MEDS ORDERED: PREDNISONE20 M1 PO (11:49)
[2024-04-15] MEDS ORDERED: METHOCARBAMOL750 M1 PO (11:49)
== END 2024-04-15 11:54 | disposition home or self-care (01) ==
LOC: ED 08:28
DX: M54.16 Radiculopathy, lumbar region (principal); M79.604 Pain in right leg; K21.9 Gastro-esophageal reflux disease without esophagitis; F32.A Depression, unspecified; F17.200 Nicotine dependence, unspecified, uncomplicated; Z88.6 Allergy status to analgesic agent; Z91.041 Radiographic dye allergy status; Z90.710 Acquired absence of both cervix and uterus; Z98.890 Other specified postprocedural states

== ENCOUNTER 2024-06-02 12:08 | Emergency (ER) | payer OTHER ==
[~2024-06-02] VITALS: Ht 160 cm; Wt 93.4 kg
[~2024-06-02 12:08] MED LIST changes: +GABAPENTIN100 M2 PO; +METHOCARBAMOL750 M1 PO; +PHENTERMINE H37.5 M3 PO; +PREDNISONE20 M1 PO; +PROPRANOLOL ER80 MG PO
[2024-06-02] MEDS ORDERED: Acetaminophen/Hydrocodone 5 MG/325 MG TABLET PO ONE (12:45)
[2024-06-02] MEDS ORDERED: CYCLOBENZAPRINE10 MG PO (14:20)
== END 2024-06-02 14:30 | disposition home or self-care (01) ==
LOC: ED 12:08
DX: S83.92XA Sprain of unspecified site of left knee, initial encounter (principal); Z88.8 Allergy status to other drugs, medicaments and biological substances; Z91.041 Radiographic dye allergy status; Z79.899 Other long term (current) drug therapy; Z98.890 Other specified postprocedural states; Z90.710 Acquired absence of both cervix and uterus; W18.39XA Other fall on same level, initial encounter; F17.200 Nicotine dependence, unspecified, uncomplicated; Y93.54 Activity, bowling; Y92.89 Other specified places as the place of occurrence of the external cause; Y99.8 Other external cause status

== ENCOUNTER 2024-09-03 09:46 | Emergency (ER) | payer OTHER ==
[~2024-09-03] VITALS: Wt 92.5 kg
== END 2024-09-03 11:46 | disposition home or self-care (01) ==
LOC: ED 09:46
DX: S90.31XA Contusion of right foot, initial encounter (principal); K21.9 Gastro-esophageal reflux disease without esophagitis; G43.909 Migraine, unspecified, not intractable, without status migrainosus; F32.A Depression, unspecified; F17.200 Nicotine dependence, unspecified, uncomplicated; Z79.899 Other long term (current) drug therapy; Z88.8 Allergy status to other drugs, medicaments and biological substances; Z91.041 Radiographic dye allergy status; Z90.710 Acquired absence of both cervix and uterus; Z98.890 Other specified postprocedural states; X58.XXXA Exposure to other specified factors, initial encounter; Y93.89 Activity, other specified; Y92.89 Other specified places as the place of occurrence of the external cause; Y99.8 Other external cause status

== ENCOUNTER 2024-09-24 16:32 | Emergency (ER) | payer OTHER ==
[~2024-09-24] VITALS: Wt 90.7 kg
[2024-09-24] MEDS ORDERED: Dexamethasone Sodium Phospha 10 MG/1 ML VIAL IM ONE (17:15)
[2024-09-24] MEDS ORDERED: Acetaminophen/Oxycodone 5 MG/325 MG TABLET PO ONE (17:15)
[2024-09-24] MEDS ORDERED: PERCOCET 5-3251 EACH PO (20:31)
[2024-09-24] MEDS ORDERED: PREDNISONE20 M1 PO (20:31)
== END 2024-09-24 20:40 | disposition home or self-care (01) ==
LOC: ED 16:32
DX: M54.9 Dorsalgia, unspecified (principal); G89.29 Other chronic pain; Q85.00 Neurofibromatosis, unspecified; Z88.8 Allergy status to other drugs, medicaments and biological substances; Z91.041 Radiographic dye allergy status; Z86.73 Personal history of transient ischemic attack (TIA), and cerebral infarction without residual deficits; F32.A Depression, unspecified; E78.5 Hyperlipidemia, unspecified; Z98.890 Other specified postprocedural states; Z90.711 Acquired absence of uterus with remaining cervical stump; Z87.891 Personal history of nicotine dependence

== ENCOUNTER 2024-12-18 11:08 | Emergency (ER) | payer OTHER ==
[~2024-12-18] VITALS: Ht 160 cm; Wt 90.3 kg
[~2024-12-18 11:08] MED LIST changes: +PERCOCET 5-3251 EACH PO
== END 2024-12-18 13:43 | disposition home or self-care (01) ==
LOC: ED 11:08
DX: M79.604 Pain in right leg (principal); R22.41 Localized swelling, mass and lump, right lower limb; G43.909 Migraine, unspecified, not intractable, without status migrainosus; E78.5 Hyperlipidemia, unspecified; F32.A Depression, unspecified; K21.9 Gastro-esophageal reflux disease without esophagitis; F17.210 Nicotine dependence, cigarettes, uncomplicated; Z88.6 Allergy status to analgesic agent; Z98.890 Other specified postprocedural states; Z90.710 Acquired absence of both cervix and uterus; Z86.16 Personal history of COVID-19

== ENCOUNTER 2025-02-24 11:09 | Emergency (ER) | payer OTHER ==
[~2025-02-24] VITALS: Ht 160 cm; Wt 88.9 kg
[2025-02-24] MEDS ORDERED: SODIUM CHLORIDE 0.9% 1,000 ML IV ONE (11:55)
[2025-02-24] MEDS ORDERED: diphenhydrAMINE hydrochloride 50 MG/ML VIAL IV ONE (11:55)
[2025-02-24] MEDS ORDERED: Metoclopramide Hydrochloride 10 MG/2 ML VIAL IV ONE (11:55)
[2025-02-24 12:11] LABS: BASO # 0.0 10*3/uL (0.0-0.1); BASO % 0.5 % (0.0-1.0); EOS # 0.2 10*3/uL (0.0-0.4); EOS % 2.2 % (1.0-4.0); MEAN CELL VOLUME 82.1 fl (81.0-99.0); MEAN CORPUSCULAR HGB 28.8 pg (27.0-31.0); MEAN PLATELET VOLUME 9.7 fl (9.6-12.3); MONO # 0.6 10*3/uL (0.1-1.0); MONO % 6.7 % (3.0-9.0); NEUT # 5.3 10*3/uL (2.3-7.9); NEUT % 65.1 % (47.0-73.0); NUCLEATED RED BLOOD CELL 0.0 % (0.0-0.0); NUCLEATED RED BLOOD CELL 0.0 10*3/uL (0.0-0.0); PLATELET COUNT AUTOMATED 286 10*3/uL (130-400); RED CELL DISTRI WIDTH 12.4 % (0-14.5)
[2025-02-24 12:33] LABS: BUN 10 mg/dl (9-23); SGPT/ALT 42 U/L (5-49)
[2025-02-24 13:24] LABS: BILIRUBIN Negative (Negative); BLOOD Negative (Negative); CLARITY Clear (Clear); COLOR Yellow (Yellow); KETONE Negative (Negative); LEUKO ESTERASE Negative (Negative); NITRITE Negative (Negative); PH 6.5 (4.5-8.0); SPECIFIC GRAVITY 1.025 (1.001-1.030); UROBILINOGEN 1.0 E.U./dl (0.0-1.0)
[2025-02-24 13:33] LABS: BACTERIA 2+; RBC 0-2 rbc/hpf (0-2); WBC 0-2 wbc/hpf (0-5)
[2025-02-24] MEDS ORDERED: Ondansetron4 MG PO (14:36)
== END 2025-02-24 15:01 | disposition home or self-care (01) ==
LOC: ED 11:09
PROVIDERS: Nurse Practitioner Family
DX: K52.9 Noninfective gastroenteritis and colitis, unspecified (principal); R10.9 Unspecified abdominal pain; R11.2 Nausea with vomiting, unspecified; K21.9 Gastro-esophageal reflux disease without esophagitis; F32.A Depression, unspecified; G43.909 Migraine, unspecified, not intractable, without status migrainosus; E78.5 Hyperlipidemia, unspecified; Z87.19 Personal history of other diseases of the digestive system; Z87.440 Personal history of urinary (tract) infections; Z86.16 Personal history of COVID-19; Z98.890 Other specified postprocedural states; Z90.710 Acquired absence of both cervix and uterus; Z88.6 Allergy status to analgesic agent